=== PATIENT | female | born 1995 | race Caucasian/White ===

== ENCOUNTER 2018-01-06 13:55 | Emergency (ER) | payer MEDICAID, SELFPAY ==
[2018-01-06 14:15] VITALS: BP 146/83; PULSE 120; RESP 20; TEMP 36.9; O2SAT 97; BMI 22.7
--- NOTE | 2018-01-06 14:32 | HMH.EDUTC ---
[facility] [place] Disposition Clinical Impression: Allergic pharyngitis Disposition: Home, Self-Care Condition on Discharge: Good Instructions: DI for Allergic Rhinitis Additional Instructions: * No sign of bacterial infection. Sounds like allergies. * Nasal Saline helps to remove nasal drainage and helps with nasal congestion. Hard to eat, drink, sleep with nasal congestion so important to keep nose cleaned out * Monitor Temp. Fever is NOT expected and could be the sign of a secondary infection so be sure to follow up if this develops. * Lots of fluids, always. Preferably water. Avoid soda/tea/caffeine * warm salt water gargles, warm fluids, sore throat lozenges all help with drainage related sore throat * sleep elevated to help with drainage * humidifier/vaporizer and/or hot steamy showers * Start Claritin 10mg daily and flonase 2 sprays each nostril daily. Can take several days before you notice improvement. Wait one week and if symptoms controlled, back down to 1 spray flonase each nostril and the claritin. If symptoms return, go back to 2 sprays but if symptoms remain controlled, give it a week and try stopping flonase. If symptoms return, start back at 1 spray each nostril with claritin but if symptoms remain controlled, continue just claritin. Wait another week and if still controlled, try stopping claritin. If symptoms return, restart claritin but if remain controlled, no medication. FOLLOW UP: Follow up IMMEDIATELY for new or worsening symptoms OR no noticeable improvement over the next 48-72 hours. 911 for difficulty breathing or swallowing Forms: Work/School Release Time of Disposition: 14:42 Medical Decision Making - Anand Inquiry Pt receiving controlled substance: No Vital Signs: 01/06/18 14:15 01/06/18 14:48 Temperature 98.4 F 98.4 F Temperature Source Temporal Artery Scan Pulse Rate 120 H Pulse Rate [Brachial] 120 H Respiratory Rate 20 20 Blood Pressure 146/83 Blood Pressure [Right Arm] 146/83 Blood Pressure Mean [Right Arm] 104 02 Sat by Pulse Oximetry 97 Oxygen Delivery Method Room Air - Lab Data Lab results reviewed: Yes: I reviewed the patient's lab results. Lab Results 01/06/18 14:18: Influenza Type A Ag Negative, Influenza Type B Ag Negative 01/06/18 14:29: Strep Scn Rapid Clinic Negative Orders (Tests/Meds): ORDERS Category Date Time Status Strep Screen Confirmation Stat Micro 01/06/18 14:[address] [facility] [place] HPI - General Stated complaint: sore throat rod cough Time Seen by Provider: 01/06/18 14:33 Mode of Arrival: Ambulatory Source of Information: Patient Limitations: No Limitations Description of Symptoms (Recalled from Triage Doc. by RN): HAD MIGRAINE, RUNNY CONCEPCION, COUGH AND SNEEZING SINCE LAST NIGHT HEENT Symptoms (Recalled from RN notes): Yes Resp Symptoms (Recalled from RN notes): Yes Skin Symptoms (Recalled from RN notes): No MS Symptoms (Recalled from RN notes): No Functional Status (Recalled from RN notes): NA - History of Present Illness Provider Complaint: Patient presents with sore throat worsened by swallowing, headaches, dry cough, sneezing and rhinorrhea since yesterday. She reports not taking a home temperature, but denies feeling chills or body aches. She does state her head feels hot at times. She reports taking Theraflu, which did not help her symptoms. Patient denies any sick contacts. - Related Data Allergies Allergy/AdvReac Type Severity Reaction Status Date / Time PCN (PENICILLIN) Allergy Unknown Uncoded 10/01/17 15:01 - Worker's Comp Is this a Worker's Comp case?: No [facility] History I have reviewed the patient's past medical history: Yes (Denies PMHx) Medical History: Denies:: Diabetes Mellitus Type 1, Diabetes Mellitus Type 2, Hypertension Other Medical History: Denies: Other (allergies) Other Surgeries: Yes: No Previous Surgery - Social History Alcohol Intake: never - Psychiatric History Expresses thoughts of harming self/others
--- NOTE | 2018-01-06 14:39 | ED_ITS ---
[facility] [place] Disposition Clinical Impression: Allergic pharyngitis Disposition: Home, Self-Care Condition on Discharge: Good Instructions: DI for Allergic Rhinitis Additional Instructions: * No sign of bacterial infection. Sounds like allergies. * Nasal Saline helps to remove nasal drainage and helps with nasal congestion. Hard to eat, drink, sleep with nasal congestion so important to keep nose cleaned out * Monitor Temp. Fever is NOT expected and could be the sign of a secondary infection so be sure to follow up if this develops. * Lots of fluids, always. Preferably water. Avoid soda/tea/caffeine * warm salt water gargles, warm fluids, sore throat lozenges all help with drainage related sore throat * sleep elevated to help with drainage * humidifier/vaporizer and/or hot steamy showers * Start Claritin 10mg daily and flonase 2 sprays each nostril daily. Can take several days before you notice improvement. Wait one week and if symptoms controlled, back down to 1 spray flonase each nostril and the claritin. If symptoms return, go back to 2 sprays but if symptoms remain controlled, give it a week and try stopping flonase. If symptoms return, start back at 1 spray each nostril with claritin but if symptoms remain controlled, continue just claritin. Wait another week and if still controlled, try stopping claritin. If symptoms return, restart claritin but if remain controlled, no medication. FOLLOW UP: Follow up IMMEDIATELY for new or worsening symptoms OR no noticeable improvement over the next 48-72 hours. 911 for difficulty breathing or swallowing Forms: Work/School Release Time of Disposition: 14:42 Medical Decision Making - Anand Inquiry Pt receiving controlled substance: No Vital Signs: 01/06/18 14:15 01/06/18 14:48 Temperature 98.4 F 98.4 F Temperature Source Temporal Artery Scan Pulse Rate 120 H Pulse Rate [Brachial] 120 H Respiratory Rate 20 20 Blood Pressure 146/83 Blood Pressure [Right Arm] 146/83 Blood Pressure Mean [Right Arm] 104 02 Sat by Pulse Oximetry 97 Oxygen Delivery Method Room Air - Lab Data Lab results reviewed: Yes: I reviewed the patient's lab results. Lab Results 01/06/18 14:18: Influenza Type A Ag Negative, Influenza Type B Ag Negative 01/06/18 14:29: Strep Scn Rapid Clinic Negative Orders (Tests/Meds): ORDERS Category Date Time Status Strep Screen Confirmation Stat Micro 01/06/18 14:29 Received [facility] [place] HPI - General Stated complaint: sore throat rod cough Time Seen by Provider: 01/06/18 14:33 Mode of Arrival: Ambulatory Source of Information: Patient Limitations: No Limitations Description of Symptoms (Recalled from Triage Doc. by RN): HAD MIGRAINE, RUNNY CONCEPCION, COUGH AND SNEEZING SINCE LAST NIGHT HEENT Symptoms (Recalled from RN notes): Yes Resp Symptoms (Recalled from RN notes): Yes Skin Symptoms (Recalled from RN notes): No MS Symptoms (Recalled from RN notes): No Functional Status (Recalled from RN notes): NA - History of Present Illness Provider Complaint: Patient presents with sore throat worsened by swallowing, headaches, dry cough, sneezing and rhinorrhea since yesterday. She reports not taking a home temperature, but denies feeling chills or body aches. She does state her head feels hot at times. She reports taking Theraflu, which did not help her symptoms. Patient denies any sick contacts. - Related Data Allergies Allergy/AdvReac Type Severity R
[2018-01-06 14:46] LABS: UTC Strep Screen (Rapid) Negative (Negative)
[2018-01-06 14:46] LABS: UTC Influenza A Antigen Negative (Negative); UTC Influenza B Antigen Negative (Negative)
[2018-01-06 14:48] VITALS: BP 146/83; PULSE 120; RESP 20; TEMP 36.9; O2SAT 97
== END 2018-01-06 14:49 | disposition home or self-care (01) ==
PROVIDERS: Emergency Provider Nurse Practitioner Family; Family Provider Emergency Medicine
DX: J02.9 Acute pharyngitis, unspecified (principal); Z88.0 Allergy status to penicillin
CPT/HCPCS: 87804; 87880; 99202

== ENCOUNTER → 2019-05-14 11:03 | Outpatient (CLI) | payer OTHER, SELFPAY ==
[2019-05-14 11:53] LABS: Basophils % 0.3 % (0.1-2.0); Eosinophils % 0.7 % (0.1-12.0); Hematocrit 42.2 % (37.0-47.0); Hemoglobin 13.3 g/dL (12.2-16.2); Lymphocytes # 2.1 K/mm3 (0.7-4.5); Lymphocytes % 34.1 % (10-50); Mean Corpuscular HGB Conc 31.5 g/dL (31.8-35.4); Mean Corpuscular Hemoglobin 30.7 pg (27.0-31.2); Mean Corpuscular Volume 97.5 fl (81-99); Mean Platelet Volume 7.8 fl (7.4-10.4); Monocytes # 0.3 K/mm3 (0.1-1.0); Monocytes % 4.8 % (1.7-9.3); Neutrophils # 3.7 K/mm3 (1.8-7.8); Platelet Count 307 K/mm3 (142-424); Red Blood Count 4.32 M/mm3 (4.20-5.40); Red Cell Distribution Width 12.7 % (11.5-17.5); White Blood Count 6.1 K/mm3 (4.8-10.8)
[2019-05-14 15:08] LABS: Amphetamine/Metha Screen,Urine Negative ng/mL (<1000); Barbiturates Screen,Urine Negative ng/mL (<200); Benzodiazepines Screen,Urine Negative ng/mL (<200); Cannabinoid Screen,Urine Negative ng/mL (<50); Cocaine Screen,Urine Negative ng/mL (<300); Methadone Screen,Urine Negative ng/mL (<300); Opiate Screen,Urine Negative ng/mL (<300); Phencyclidine Screen,Urine Negative ng/mL (<25)
[2019-05-15 09:17] LABS: HIV Screen 4th Generation wRfx Non Reactive (Non Reactive)
[2019-05-15 17:11] LABS: Hepatitis B Surface Antigen Negative (Negative); Hepatitis C Antibody <0.1 s/co ratio (0.0-0.9); Rapid Plasma Reagin Ab Titer Non Reactive (NonRea<1:1); Rubella Antibodies, IgG 2.08 index (Immune >0.99)
== END ==
PROVIDERS: Visit Provider Obstetrics & Gynecology
DX: Z34.90 Encounter for supervision of normal pregnancy, unspecified, unspecified trimester (principal)
CPT/HCPCS: 36415; 80305; 84443; 85025; 86592; 86703; 86762; 86850; 87340; 87380; G0432

== ENCOUNTER → 2019-05-25 14:22 | Outpatient (CLI) | payer OTHER, SELFPAY ==
[2019-05-25 15:13] LABS: Triiodothryronine (T3) Uptake 36 % (31-39)
== END ==
PROVIDERS: Visit Provider Obstetrics & Gynecology
DX: Z34.90 Encounter for supervision of normal pregnancy, unspecified, unspecified trimester (principal); R94.6 Abnormal results of thyroid function studies
CPT/HCPCS: 36415; 84436; 84443; 84479

== ENCOUNTER → 2019-09-15 11:21 | Outpatient (CLI) | payer OTHER, SELFPAY ==
--- NOTE | 2019-09-15 11:23 | US_ITS ---
PROCEDURE: US OB /MATERNAL DETAIL CLINICAL INDICATION: US OB Complete COMPARISON: No exams were available for comparison FINDINGS: Single viable intrauterine gestation. Cephalic position. Placenta: Fundal and posteriorplacenta grade 1. There is average amount fluid. The cervix appears satisfactory. Closed and measuring 4 cm in length. Complete survey performed and was unremarkable on the submitted images as in PACS. No discrete anomalies identified on survey imaging by technologist. Active fetus. Three-vessel cord with satisfactory umbilical cord insertion. 4- chamber heart noted. Survey of brain & ventricles Unremarkable. Face and neck survey unremarkable. Diaphragm and chest views unremarkable. Abdomen: Both kidneys noted and unremarkable. Stomach noted and satisfactory. Spine: Survey of the spine satisfactory with no anomalies identified nor imaged. Both arms and legs noted. Amniotic Fluid: Adequate. Maternal adnexa: No significant findings. Measurements: Average ultrasound age 24 week 4 days. Gestational Age 24 weeks 3 days Estimated due date by ultrasound age 0301/01/2020. Estimated weight 671.4 ggrams. BPD = 25/1 OFD = 25/1 HC = 24/4 AC = 24/ FL = 24/2 Growth Percentile= 31 percentile% Heart Rate = 152 bpm Cerebellum = 25/6 Humerus = 24/2 HC/AC is 1.17 CI is 0.77 FL/BPD is 0.7 FL/AC is 0.22 IMPRESSION: There is a single live fetus which is in cephalic presentation. heart and body motion noted. All parameters correlate. No obvious anomalies. Please see above for detail Dictated by: Mario Reagan MD 09/16/2019 13:54 Electronically signed by Mario Reagan MD in [place] 09/16/2019 13:54
== END ==
PROVIDERS: PCP Internal Medicine; Visit Provider Obstetrics & Gynecology
DX: Z36.0 Encounter for antenatal screening for chromosomal anomalies (principal)
CPT/HCPCS: 76811

== ENCOUNTER → 2019-10-16 07:53 | Outpatient (CLI) | payer OTHER, SELFPAY ==
[2019-10-16 08:20] LABS: Glucose,Fasting 80 mg/dL (60-105)
[2019-10-16 09:56] LABS: Glucose 1 Hour 145 mg/dL (74-106)
== END ==
PROVIDERS: Visit Provider Obstetrics & Gynecology
DX: Z34.90 Encounter for supervision of normal pregnancy, unspecified, unspecified trimester (principal)
CPT/HCPCS: 36415; 82951

== ENCOUNTER → 2019-10-19 07:35 | Outpatient (CLI) | payer OTHER, SELFPAY ==
[2019-10-19 08:07] LABS: Glucose,Fasting 75 mg/dL (60-105)
== END ==
PROVIDERS: Visit Provider Obstetrics & Gynecology
DX: Z34.90 Encounter for supervision of normal pregnancy, unspecified, unspecified trimester (principal)
CPT/HCPCS: 36415; 82951

== ENCOUNTER → 2019-12-02 13:24 | Outpatient (CLI) | payer OTHER, SELFPAY ==
--- NOTE | 2019-12-02 13:24 | US_ITS ---
PROCEDURE: US OB FOLLOW UP CLINICAL INDICATION: US OB Growth KARLOS- small for dates COMPARISON: US OB /MATERNAL DETAIL from 09/15/2019 FINDINGS: Single viable intrauterine gestation. Cephalic position. Placenta: Posteriorplacenta grade 2. There is average amount fluid. The cervix appears satisfactory. Closed and measuring 3.1 centimeters in length. Complete survey performed and was unremarkable on the submitted images as in PACS. No discrete anomalies identified on survey imaging by technologist. Active fetus. Three-vessel cord with satisfactory umbilical cord insertion. 4- chamber heart noted. Survey of brain & ventricles Unremarkable. Face and neck survey unremarkable. Diaphragm and chest views unremarkable. Abdomen: Both kidneys noted and unremarkable. Stomach noted and satisfactory. Spine: Survey of the spine satisfactory with no anomalies identified nor imaged. Both arms and legs noted. Amniotic Fluid: Adequate. Maternal adnexa: No significant findings. Measurements: Average ultrasound age 35weeks 1day. Gestational Age 35 weeks 4 days Estimated due date by ultrasound age 0301/05/2020. Estimated weight 2,612ggrams. BPD = 35 weeks 4 days OFD = 35 weeks 2 days HC = 35 weeks 0 days AC = 35 weeks 6 days FL = 34 weeks 1 day Growth Percentile= 32Percent% Heart Rate = 161bpm HC/AC is 0.98 CI is 0.8 FL/BPD is 0.75 FL/AC is 0.21 IMPRESSION: Living intrauterine gestation at 35 weeks 1 day Dictated by: Glen Aguila 12/02/2019 15:06 Electronically signed by Glen Aguila in [place] 12/02/2019 15:06
== END ==
PROVIDERS: PCP Internal Medicine; Visit Provider Obstetrics & Gynecology
DX: O36.5990 Maternal care for other known or suspected poor fetal growth, unspecified trimester, not applicable or unspecified (principal)
CPT/HCPCS: 76816

== ENCOUNTER → 2019-12-04 14:30 | Outpatient (CLI) | payer OTHER, SELFPAY | PROVIDERS: Visit Provider Obstetrics & Gynecology | DX: Z34.90 Encounter for supervision of normal pregnancy, unspecified, unspecified trimester (principal) | CPT/HCPCS: 86403 ==

== ENCOUNTER 2019-12-27 16:01 | Inpatient (IN) ==
[2019-12-27 17:01] LABS: Microscopic, Urine URINE MICROSCOPIC (MICROSCOPIC)
[2019-12-27 17:03] LABS: Basophils % 0.2 % (0.1-2.0); Eosinophils % 0.3 % (0.1-12.0); Hemoglobin 12.4 g/dL (12.2-16.2); Lymphocytes # 3.1 K/mm3 (0.7-4.5); Lymphocytes % 28.9 % (10-50); Mean Corpuscular HGB Conc 33.4 g/dL (31.8-35.4); Mean Corpuscular Volume 90.9 fl (81-99); Monocytes # 0.4 K/mm3 (0.1-1.0); Neutrophils # 7.1 K/mm3 (1.8-7.8); Neutrophils % 66.6 % (37.0-80.0); Platelet Count 361 K/mm3 (142-424); Red Blood Count 4.07 M/mm3 (4.20-5.40); Red Cell Distribution Width 13.6 % (11.5-17.5); White Blood Count 10.7 K/mm3 (4.8-10.8)
[2019-12-27 17:16] LABS: Barbiturates Screen,Urine Negative ng/ml (<200)
[2019-12-27 17:17] LABS: Amphetamine/Metha Screen,Urine Negative ng/ml (<1000); Benzodiazepines Screen,Urine Negative ng/ml (<200)
[2019-12-27 17:18] LABS: Cannabinoid Screen,Urine Negative ng/ml (<50)
[2019-12-27 17:19] LABS: Cocaine Screen,Urine Negative ng/ml (<300); Methadone Screen,Urine Negative ng/ml (<300)
[2019-12-27 17:20] LABS: Opiate Screen,Urine Negative ng/ml (<300); Phencyclidine Screen,Urine Negative ng/ml (<25)
[2019-12-27 17:25] LABS: Appearance,Urine CLEAR (Clear); Bilirubin,Urine Negative (Negative); Blood, Urine Negative (Negative); Color,Urine YELLOW (Yellow); Glucose,Urine (UA) Negative (Negative); Ketones,Urine Negative (Negative); Leukocyte Esterase,Urine TRACE (Negative); PH,Urine 6.5 (5.0-8.5); Protein,Urine Negative (Negative); Specific Gravity, Urine 1.015 (1.005-1.030); Urobilinogen,Urine 0.2 EU/dl (0.2)
[2019-12-27 17:32] LABS: WBC,Urine Occasional #/hpf (0-3)
--- NOTE | 2019-12-28 07:42 | Progress Note ---
[facility] Anesthesia Checklist - Structural Data Admitted From: Inpatient Planned Operative Procedure/s: labor erpidural Consent for Planned Operative Procedure(s) Verified: Yes - Airway Assessment C-Spine Mobility Assessed: Yes TMJ Mobility Assessed: Yes Dentition: Good Dentition - Neurological Assessment Level of Consciousness: Awake, Alert, Appropriate - Anesthesia Plan Anesthesia Risk discussed: Yes Anesthesia Plan: Verified ASA Class: II Anesthesia Type: Epidural [facility] History I have reviewed the patient's past medical history: Yes Medical History: Denies:: Diabetes Mellitus Type 1, Diabetes Mellitus Type 2, Hypertension *Have you ever received a pneumonia vaccine?: No *Have you received a flu vaccine this season?: Yes Other Medical History: Denies: Other Anesthesia experience/problems:: none Other Surgeries: Yes: No Previous Surgery. No: Amputation: No Fractures: No - *Social History Smoking Status: Never smoker Alcohol Intake: never Alcohol Intake Frequency:: other Substance Use Type: denies use *Occupational Status:: employed Housing: house *Travel in the last 8 weeks: None Family Hx:: No significant family history GIZZARD PULLER history: No GIZZARD PULLER history Para: 0
--- NOTE | 2019-12-28 13:20 | Procedure Note ---
- Delivery Note Delivery Date:: 12/28/19 Delivery Time:: 11:17 Anesthesia Type: Epidural Was labor medically induced?: Yes Induction method: per pitocin protocol Gestational age (weeks): 41 delivered prior to 39 weeks?: No Gender: Female Delivery Procedure:: Complete and pushing. Patient having bradycardia with pushing and maternal exhaustion. Outlet vacuum applied in standard fashion Vacuum assisted vaginal delivery of liveborn female over intact perineum. Delivery uncomplicated No nuchal cord; no shoulder dystocia with delivery placed in SAUD with mother immediately after umbilical cord clamped/cut, with standard nursing assessment performed Placenta spontaneously expressed and examined; noted to be complete/intact. Vulva, vagina, and cervix inspected; second degree laceration repaired with 2-0 vicryl EBL: 300 cc All sponge/needle/instrument counts correct at conclusion of procedure Disposition: Mom/baby stable to recovery in LDRP Laceration:: vaginal Placental Delivery Description: Spontaneous
[2019-12-28 16:32] VITALS: BP 133/76
[2019-12-29 05:50] LABS: Hematocrit 27.4 % (37.0-47.0); Hemoglobin 9.2 g/dL (12.2-16.2)
--- NOTE | 2019-12-29 12:17 | Progress Note ---
Internal Medicine - PN: Subj *Date: 12/29/19 *Time: 12:16 Interval history: PPD #1 VAVD No complaints Tolerating regular diet Ambulating and voiding without difficulty Lochia appropriate; asymptomatic with anemia Exam Vital signs and Labs for Last 24 Hours: Temp Pulse Resp BP Pulse Ox 98.2 F 83 18 133/76 98 12/28/19 16:05 12/28/19 16:05 12/28/19 16:05 12/28/19 16:05 12/28/19 07:33 Laboratory Results - last 24 hr 12/29/19 05:20: Hgb 9.2 L, Hct 27.4 L I & O for Last 24 hours: Intake & Output 12/27/19 12/28/19 12/29/19 12/30/19 11:59 11:59 11:59 11:59 Weight 126 lb Narrative: CONSTITUTIONAL: no acute distress HEENT: mucous membranes moist PULMONARY: breathing unlabored without audible wheezes CV: no tachycardia or visible JVD; normal LE peripheral pulses ABD: soft, NT/ND, no guarding : fundus firm at/below umbilicus SKIN: no visible rash or lesions EXT: 1+ edema LEs NEURO: alert/oriented, no altered mental status PSYCH: appropriate mood and demeanor without visible anxiety/depression Assessment and Plan (1) 39 weeks gestation of Current visit: Yes Status: Acute Category: Medical Code(s): Z3A.39 - 39 weeks gestation of (2) Glucose intolerance Problem details: Failed 1 hr GCT; unable to tolerate 3 hr GTT Current visit: Yes Status: Acute Category: Medical Code(s): E74.39 - Other disorders of intestinal carbohydrate absorption (3) Small for dates fetus Problem details: EFW 32%, normal KARLOS Grade 2 placenta Current visit: Yes Status: Acute Category: Medical - Assessment and plan all Dx Assessment and Plan for all problems:: Routine care PNV with FeSO4 Anticipate discharge home tomorrow
--- NOTE | 2019-12-30 13:18 | Discharge Summary ---
General - General Admission date:: 12/27/19 Discharge date: 12/30/19 HPI HPI: PPD #2 S/P VAVD, uncomplicated course uneventful Infant diagnosed with tethered cord and will need outpatient follow up Hospital Course Rhogam Administration: Not Indicated Objective Vital signs: Temp Pulse Resp BP Pulse Ox 98.2 F 83 18 133/76 98 12/28/19 16:05 12/28/19 16:05 12/28/19 16:05 12/28/19 16:05 12/28/19 07:33 Narrative: CONSTITUTIONAL: no acute distress HEENT: mucous membranes moist PULMONARY: breathing unlabored without audible wheezes CV: no tachycardia or visible JVD; normal LE peripheral pulses ABD: soft, NT/ND, no guarding : fundus firm at/below umbilicus SKIN: no visible rash or lesions EXT: 1+ edema LEs NEURO: alert/oriented, no altered mental status PSYCH: appropriate mood and demeanor without visible anxiety/depression DS: Diagnosis - Discharge Diagnosis (1) 39 weeks gestation of Status: Acute (2) Glucose intolerance Status: Acute Problem details: Failed 1 hr GCT; unable to tolerate 3 hr GTT (3) Small for dates fetus Status: Acute Problem details: EFW 32%, normal KARLOS Grade 2 placenta Discharge Plan - Patient Discharge Instructions ACTIVITY: Continue current activity DIET: regular diet Additional Instructions: no heavy lifting, no strenuous activity, nothing in the vagina for 6 weeks. Patient Instructions: Depression, Hemorrhage, [facility] Post Discharge Instructions - Follow up Plan Follow up with: Frieda Garsia MD [Staff Physician] - Disposition: Home, Self-Detention Medications: Home Medications Medication Instructions Recorded Confirmed Type pediatric multivitamin no.76 2 tab PO DAILY 09/09/19 12/27/19 History Ibuprofen [Motrin 400mg 800 mg PO Q6HP PRN #30 tab 12/30/19 Rx tablet] Prescriptions/Medication Reconciliation: New Acetaminophen [Acetaminophen 325mg tab] 650 mg PO Q4HP PRN tablet PRN Reason: Mild Pain Ibuprofen [Motrin 400mg tablet] 800 mg PO Q6HP PRN #30 tab PRN Reason: Mild To Moderate Pain Continued pediatric multivitamin no.76 2 tab PO DAILY - Problem Reconciliation Problems Reviewed?: Yes
== END 2019-12-30 15:57 | disposition home or self-care (01) | DRG 807 ==
LOC: OB 16:01
PROVIDERS: ADMIT Obstetrics & Gynecology; ATTEND Obstetrics & Gynecology
CPT/HCPCS: 36415; 59025; 80305; 81001; 85014; 85018; 85025; 86850; 94761; J0595

== ENCOUNTER 2020-06-21 17:20 | Emergency (ER) | payer OTHER, SELFPAY ==
[2020-06-21 17:37] VITALS: BP 121/81; PULSE 85; RESP 19; TEMP 36.9; O2SAT 100; BMI 22.9
--- NOTE | 2020-06-21 18:10 | HMH.EDUTC ---
[facility] [place] Disposition Clinical Impression: Strep throat Disposition: Home, Self-Care Condition on Discharge: Good Instructions: Strep Throat, DI for Strep Throat Additional Instructions: Drink plenty of fluids. Take tylenol or ibuprofen for pain or fever. Take the medications as directed. Follow up with your regular doctor. GO TO THE ER FOR ANY WORSENING SYMPTOMS Throw your tooth brush away and get a new one. Prescriptions: Ondansetron [Zofran 4mg ODT] 4 mg PO Q8HP PRN #20 tab.rapdis PRN Reason: Nausea Transmission Status: Pending to [id number] Azithromycin [Z-Ozzie 250mg Tab*] 250 mg PO UD DOSE PK #6 tab Transmission Status: Pending to [id number] Referrals: Reginaldo Frazier [Primary Care Provider] - Time of Disposition: 18:13 Medical Decision Making - Medical Records Medical records reviewed: No: I reviewed the patient's medical records. - Anand Inquiry Pt receiving controlled substance: No Vital Signs: 06/21/20 17:37 Temperature 98.4 F Temperature Source Oral Pulse Rate [Right Brachial] 85 Respiratory Rate 19 Blood Pressure [Right Arm] 121/81 Blood Pressure Mean [Right Arm] 94 Blood Pressure Source [Right Arm] Automatic Cuff Blood Pressure Position [Right Arm] Sitting 02 Sat by Pulse Oximetry 100 Oxygen Delivery Method Room Air - Lab Data Lab results reviewed: Yes: I reviewed the patient's lab results. [facility] [place] HPI - General Stated complaint: Sore throat, cough Time Seen by Provider: 06/21/20 18:10 Mode of Arrival: Ambulatory Source of Information: Patient Limitations: No Limitations Description of Symptoms (Recalled from Triage Doc. by RN): PATIENT C/O COUGHT, SORE THROAT, AND SNEEZING X 2 DAYS HEENT Symptoms (Recalled from RN notes): Yes Resp Symptoms (Recalled from RN notes): Yes Skin Symptoms (Recalled from RN notes): No MS Symptoms (Recalled from RN notes): No Functional Status (Recalled from RN notes): WNL - History of Present Illness Provider Complaint: She c/o sore throat and feeling bad for the past 2 days. She states that she gets strep throat easily. - Related Data Previous Rx's Medication Instructions Recorded fluoxetine 20 mg capsule 20 mg PO DAILY #30 cap 06/07/20 medroxyprogesterone 150 mg/mL 150 mg IM [id number] #1 ml 06/07/20 intramuscular suspension Azithromycin [Z-Ozzie 250mg Tab*] 250 mg PO UD DOSE PK #6 tab 06/21/20 Ondansetron [Zofran 4mg ODT] 4 mg PO Q8HP PRN #20 tab.rapdis 06/21/20 Allergies Allergy/AdvReac Type Severity Reaction Status Date / Time Penicillins Allergy Verified 06/07/20 15:01 - Worker's Comp Is this a Worker's Comp case?: No [facility] History - Hepatitis A Screen Drug use history?: No High risk sexual behaviors?: No History of sexually transmitted infection?: No Currently employed?: No Childcare worker?: No Do you have indoor plumbing?: Yes Do you have electricity?: Yes Attestation statement:: This patient has been screened for Hepatitis A risk factors. I have reviewed the patient's past medical history: Yes Medical History: Denies:: Diabetes Mellitus Type 1, Diabetes Mellitus Type 2, Hypertension Other Medical History: Denies: Other Other Surgeries: Yes: No Previous Surgery. No: Amputation: No Fractures: No - Social History Smoking Status: Never smoker Alcohol Intake: never Alcohol Intake Frequency:: other Substance Use Type: denies use Occupational Status: other Housing: house Family Hx:: No significant family history CLINICAL NURSING ASSISTANT history: No CLINICAL NURSING ASSISTANT history ROS Obtained: Yes All systems reviewed & no additional complaints - Constitutional Constitutional: Reports chills, Reports fever(s), Reports poor appetite, Reports malaise - Eyes Eyes: Denies eye discharge - ENT Ears, Nose, Mouth, and Throat: Reports as per HPI - Cardiovascular Cardiovascular: Denies chest pain - Respiratory Respiratory: No chest congestion, Yes cough - Gastrointestinal Gastrointes
[2020-06-21 18:20] LABS: UTC Strep Screen (Rapid) Positive (Negative)
[2020-06-21 18:24] VITALS: BP 121/81; PULSE 85; RESP 19; TEMP 36.9; O2SAT 100
== END 2020-06-21 18:25 | disposition home or self-care (01) ==
PROVIDERS: Emergency Provider Nurse Practitioner Family; PCP Internal Medicine
DX: J02.0 Streptococcal pharyngitis (principal)
CPT/HCPCS: 87880; 99201

== ENCOUNTER → 2021-09-28 11:13 | Outpatient (CLI) | payer OTHER, SELFPAY | PROVIDERS: Visit Provider Obstetrics & Gynecology | DX: Z34.90 Encounter for supervision of normal pregnancy, unspecified, unspecified trimester (principal) | CPT/HCPCS: 36415; 84702 ==

== ENCOUNTER → 2021-09-30 13:11 | Outpatient (CLI) | payer OTHER, SELFPAY ==
[2021-09-30 15:55] LABS: HCG,Quantitative 140280 mIU/ml (0-5.42)
== END ==
PROVIDERS: PCP Internal Medicine; Visit Provider Obstetrics & Gynecology
DX: Z34.90 Encounter for supervision of normal pregnancy, unspecified, unspecified trimester (principal)
CPT/HCPCS: 36415; 84702

== ENCOUNTER → 2021-10-10 13:53 | Outpatient (CLI) | payer OTHER, SELFPAY ==
--- NOTE | 2021-10-10 13:53 | US_ITS ---
PROCEDURE: US OB <= 14 WEEKS FETUS CLINICAL INDICATION: Dates COMPARISON: US US OB FOLLOW UP from 12/02/2019 FINDINGS: An intrauterine gestational sac is present with a pole with a crown-rump length of 1.71cm correlating to gestational age of 8weeks 2days. heart tones are present with an FHR of 167bpm. Yolk sac is noted. Unremarkable adnexa. IMPRESSION: Live IUP at 8 weeks 2 days Estimated due date by Ultrasound is 05/20/2022 Dictated by: Mario Reagan MD 10/10/2021 15:54 Mario Reagan MD in [place] 10/10/2021 15:54
== END ==
PROVIDERS: PCP Internal Medicine; Visit Provider Obstetrics & Gynecology
DX: Z34.90 Encounter for supervision of normal pregnancy, unspecified, unspecified trimester (principal)
CPT/HCPCS: 76801

== ENCOUNTER → 2021-10-23 15:11 | Outpatient (CLI) | payer OTHER, SELFPAY ==
[2021-10-23 16:03] LABS: Basophils # 0.1 K/mm3 (0-0.2); Basophils % 0.7 % (0.1-2.0); Eosinophils # 0.1 K/mm3 (0.0-0.4); Eosinophils % 1.2 % (0.1-12.0); Lymphocytes # 3.9 K/mm3 (0.7-4.5); Lymphocytes % 39.7 % (10-50); Mean Corpuscular HGB Conc 34.1 g/dL (31.8-35.4); Mean Corpuscular Hemoglobin 32.6 pg (27.0-31.2); Mean Corpuscular Volume 95.6 fl (81-99); Monocytes # 0.4 K/mm3 (0.1-1.0); Neutrophils # 5.3 K/mm3 (1.8-7.8); Neutrophils % 54.4 % (37.0-80.0); Platelet Count 413 K/mm3 (142-424); Red Blood Count 4.29 M/mm3 (4.20-5.40); Red Cell Distribution Width 13.2 % (11.5-17.5); White Blood Count 9.7 K/mm3 (4.8-10.8)
[2021-10-25 08:52] LABS: HIV Screen 4th Generation wRfx Non Reactive (Non Reactive)
[2021-10-25 12:15] LABS: Hepatitis B Surface Antigen Negative (Negative); Hepatitis C Antibody 0.1 s/co ratio (0.0-0.9); Rapid Plasma Reagin Ab Titer Non Reactive (NonRea<1:1)
[2021-10-25 14:16] LABS: Rubella Antibodies, IgG 1.36 index (Immune >0.99)
== END ==
PROVIDERS: PCP Internal Medicine; Visit Provider Obstetrics & Gynecology
DX: Z34.90 Encounter for supervision of normal pregnancy, unspecified, unspecified trimester (principal)
CPT/HCPCS: 36415; 85025; 86592; 86703; 86762; 86850; 87340; 87380; G0432

== ENCOUNTER → 2022-01-02 12:40 | Outpatient (CLI) | payer OTHER, SELFPAY ==
--- NOTE | 2022-01-02 12:41 | US_ITS ---
FINAL REPORT CLINICAL HISTORY: anatomy scan, OB complete FINDINGS: There is a single live intrauterine gestation. Presentation is breech. The cervix is closed and measures 3.29 cm. Placenta is anterior/ fundal. movement is noted. Heart rate is measured at 158 beats per minute. No gross anomaly is identified. AMNIOTIC FLUID: Appropriate amount. MEASUREMENTS: ULTRASOUND AGE: 19 weeks 6 days. GESTATION AGE: 20 weeks 2 days. ESTIMATED WEIGHT: 333 g GROWTH PERCENTILE: 35% BPD: 4.6 cm corresponding with 19 weeks 6 days. OFD: 5.7 cm corresponding with 19 weeks 6 days. HC: 16.2 cm corresponding with 19 weeks 0 days. AC: 15.2 cm corresponding with 20 weeks 3 days. FL: 3.2 cm corresponding with 20 weeks 1 day. CEREBELLUM: 2 cm corresponding with 20 weeks 3 days. HUMERUS: 3.1 cm corresponding with 20 weeks 2 days. NUCH FOLD: 1.4 MM. HC/AC: 1.07 CI: 80% FL/BPD: 71% FL/AC: 21% IMPRESSION: Single living IUP with an ultrasound age of 19 weeks 6 days. No gross anomalies noted. Reviewed, Interpreted and Dictated by Pratik Tyler MD Transcribed by Shima Sims Authenticated by Pratik Tyler MD on 01/02/2022 04:01:29 PM [facility]
== END ==
PROVIDERS: PCP Internal Medicine; Visit Provider Obstetrics & Gynecology
DX: Z34.90 Encounter for supervision of normal pregnancy, unspecified, unspecified trimester (principal)
CPT/HCPCS: 76805

== ENCOUNTER → 2022-02-09 08:51 | Outpatient (CLI) | payer OTHER, SELFPAY ==
[2022-02-09 09:12] LABS: Basophils # 0.1 K/mm3 (0-0.2); Basophils % 1.2 % (0.1-2.0); Eosinophils # 0.1 K/mm3 (0.0-0.4); Eosinophils % 0.7 % (0.1-12.0); Hematocrit 37.9 % (37.0-47.0); Hemoglobin 12.5 g/dL (12.2-16.2); Lymphocytes # 2.5 K/mm3 (0.7-4.5); Mean Corpuscular Hemoglobin 31.7 pg (27.0-31.2); Mean Corpuscular Volume 95.8 fl (81-99); Mean Platelet Volume 7.8 fl (7.4-10.4); Monocytes # 0.3 K/mm3 (0.1-1.0); Monocytes % 3.6 % (1.7-9.3); Neutrophils # 5.5 K/mm3 (1.8-7.8); Neutrophils % 65.6 % (37.0-80.0); Platelet Count 337 K/mm3 (142-424); Red Blood Count 3.95 M/mm3 (4.20-5.40); Red Cell Distribution Width 14.4 % (11.5-17.5); White Blood Count 8.4 K/mm3 (4.8-10.8)
[2022-02-09 09:18] LABS: Glucose,Fasting 89 mg/dl (74-100)
[2022-02-09 10:36] LABS: Glucose 1 Hour 141 mg/dL (74-100)
== END ==
PROVIDERS: PCP Internal Medicine; Visit Provider Obstetrics & Gynecology
DX: Z34.90 Encounter for supervision of normal pregnancy, unspecified, unspecified trimester (principal)
CPT/HCPCS: 36415; 82951; 85025

== ENCOUNTER → 2022-04-03 12:59 | Outpatient (CLI) | payer OTHER, SELFPAY ==
--- NOTE | 2022-04-03 12:59 | US_ITS ---
FINAL REPORT CLINICAL HISTORY: Growth and KARLOS FINDINGS: There is a single live intrauterine gestation. Presentation is cephalic. Placenta is fundal, grade 2. Heart rate is 150 beats per minute. AMNIOTIC FLUID: Appropriate amount. KARLOS: 14.8 cm MEASUREMENTS: ULTRASOUND AGE: 33 weeks 2 days. GESTATION AGE: 33 weeks 2 days. ESTIMATED WEIGHT: 2125 g GROWTH PERCENTILE: 37% BPD: 8.3 cm corresponding with 33 weeks 2 days. OFD: 10.5 cm corresponding with 33 weeks 1 days. HC: 29.7 cm corresponding with 33 weeks 0 days. AC: 29.3 cm corresponding with 33 weeks 3 days. FL: 6.4 cm corresponding with 33 weeks 0 days. HC/AC: 1.01 CI: 79% FL/BPD: 77% FL/AC: 22% IMPRESSION: Single living IUP with an ultrasound age of 33 weeks 2 days. KARLOS of 14.8 cm Reviewed, Interpreted and Dictated by Mejia Salmeron III, MD Transcribed by Shima Sims Authenticated and [facility]
== END ==
PROVIDERS: PCP Internal Medicine; Visit Provider Obstetrics & Gynecology
DX: O36.5990 Maternal care for other known or suspected poor fetal growth, unspecified trimester, not applicable or unspecified (principal)
CPT/HCPCS: 76816

== ENCOUNTER → 2022-04-25 09:06 | Outpatient (CLI) | payer OTHER, SELFPAY | PROVIDERS: Visit Provider Obstetrics & Gynecology | DX: Z34.90 Encounter for supervision of normal pregnancy, unspecified, unspecified trimester (principal) | CPT/HCPCS: 86403 ==

== ENCOUNTER 2022-05-13 19:28 | Inpatient (IN) | payer OTHER, SELFPAY ==
[2022-05-13 18:29] VITALS: BMI 27.6
[2022-05-13 18:33] LABS: Microscopic, Urine URINE MICROSCOPIC (MICROSCOPIC)
[2022-05-13 18:43] LABS: Appearance,Urine CLEAR (Clear); Bilirubin,Urine Negative (Negative); Blood, Urine Negative (Negative); Color,Urine YELLOW (Yellow); Glucose,Urine (UA) Negative (Negative); Ketones,Urine TRACE (Negative); Leukocyte Esterase,Urine Negative (Negative); Nitrate,Urine Negative (Negative); Protein,Urine Negative (Negative)
[2022-05-13 18:46] LABS: Amorphous Sediment,Urine 1+ /lpf; Squamous Epithelial Cell,Urine Occasional #/hpf (0-5); WBC,Urine Occasional #/hpf (0-3)
[2022-05-13 18:54] LABS: Barbiturates Screen,Urine Negative ng/ml (<200)
[2022-05-13 18:55] LABS: Amphetamine/Metha Screen,Urine Negative ng/ml (<1000); Benzodiazepines Screen,Urine Negative ng/ml (<200)
[2022-05-13 18:56] LABS: Cannabinoid Screen,Urine Negative ng/ml (<50); Cocaine Screen,Urine Negative ng/ml (<300)
[2022-05-13 18:57] LABS: Methadone Screen,Urine Negative ng/ml (<300)
[2022-05-13 18:58] LABS: Opiate Screen,Urine Negative ng/ml (<300); Phencyclidine Screen,Urine Negative ng/ml (<25)
[2022-05-13 20:06] VITALS: BP 136/79; PULSE 109; RESP 18; TEMP 37.6; O2SAT 98; BMI 27.6
[2022-05-13 20:30] LABS: Influenza A, PCR Not Detected (NotDetected); Influenza B, PCR Not Detected (NotDetected)
[2022-05-13 20:35] LABS: Basophils % 0.3 % (0.1-2.0); Eosinophils % 0.4 % (0.1-12.0); Hematocrit 31.2 % (37.0-47.0); Hemoglobin 10.4 g/dL (12.2-16.2); Lymphocytes # 0.5 K/mm3 (0.7-4.5); Lymphocytes % 6.7 % (10-50); Mean Corpuscular HGB Conc 33.3 g/dL (31.8-35.4); Mean Corpuscular Hemoglobin 30.2 pg (27.0-31.2); Mean Corpuscular Volume 90.7 fl (81-99); Mean Platelet Volume 8.5 fl (7.4-10.4); Monocytes # 0.3 K/mm3 (0.1-1.0); Monocytes % 3.6 % (1.7-9.3); Neutrophils # 6.9 K/mm3 (1.8-7.8); Neutrophils % 89.1 % (37.0-80.0); Platelet Count 328 K/mm3 (142-424); Red Blood Count 3.44 M/mm3 (4.20-5.40); Red Cell Distribution Width 14.1 % (11.5-17.5); White Blood Count 7.7 K/mm3 (4.8-10.8)
[2022-05-13 20:38] LABS: MANUAL DIFFERENTIAL MANUAL DIFFERENTIAL (MANUAL DIFF)
[2022-05-13 20:57] LABS: Coronavirus 19, PCR Detected (NotDetected)
[2022-05-13 21:21] LABS: Lymphocytes % 6 % (10-50); Monocytes % 3 % (2-9); Neutrophils % 91 % (42-76); Total Cells Counted 100
[2022-05-13 21:22] LABS: Platelet Estimate Normal; RBC Morphology Normal
[2022-05-14 07:36] VITALS: BP 117/56; PULSE 96; RESP 22; TEMP 37.1; O2SAT 96
--- NOTE | 2022-05-14 11:06 | HMH.ANESCL ---
[facility] Anesthesia Checklist - Patient Identification Patient Identification: Arm Band - Structural Data Admitted From: Inpatient Planned Operative Procedure/s: Labor Epidural Consent for Planned Operative Procedure(s) Verified: Yes Verified Documents: Surgical Consent, History and Physical - NPO Status Verified Time NPO: 00:00 - Additional verifications Anesthesia Reactions: No - Airway Assessment C-Spine Mobility Assessed: Yes TMJ Mobility Assessed: Yes Dentition: Good Dentition - Neurological Assessment Level of Consciousness: Awake, Alert - Anesthesia Plan Anesthesia Risk discussed: Yes Anesthesia Plan: Verified ASA Class: II Anesthesia Type: Epidural [facility] History I have reviewed the patient's past medical history: Yes Medical History: Denies:: Diabetes Mellitus Type 1, Diabetes Mellitus Type 2, Hypertension *Have you ever received a pneumonia vaccine?: No *Have you received a flu vaccine this season?: No Other Medical History: Denies: Other Anesthesia experience/problems:: nac Other Surgeries: Yes: No Previous Surgery. No: Amputation: No Fractures: No - *Social History Smoking Status: Never smoker Alcohol Intake: never Alcohol Intake Frequency:: other Substance Use Type: denies use *Occupational Status:: unemployed Housing: house *Travel in the last 8 weeks: None Family Hx:: No significant family history FINISHER DENTURE history: No FINISHER DENTURE history Para: 1
--- NOTE | 2022-05-14 16:03 | HMH.HP ---
*Admission Date: 05/13/22 *Chief complaint: 1. Covid 19 symptoms 2. Induction of labor *History of present illness: 26 yo @ 39 10/20 for induction of labor She presented on the evening prior to scheduled induction with respiratory complaints and positive covid 19 result She was admitted early for IV fluids and monitoring care at [facility]-- Dr. Garsia complicated by anxiety/depression but she discontinued SSRI treatment due to problematic side effects She failed 1 hr GTT with 141 result but did not have 3 hr GTT done [facility] History I have reviewed the patient's past medical history: Yes Medical History: Denies:: Diabetes Mellitus Type 1, Diabetes Mellitus Type 2, Hypertension *Have you ever received a pneumonia vaccine?: No *Have you received a flu vaccine this season?: No Other Medical History: Denies: Other Anesthesia experience/problems:: nac Other Surgeries: Yes: No Previous Surgery. No: Amputation: No Fractures: No - *Social History Smoking Status: Never smoker Alcohol Intake: never Alcohol Intake Frequency:: other Substance Use Type: denies use *Occupational Status:: unemployed Housing: house *Travel in the last 8 weeks: None Family Hx:: No significant family history AGRICULTURAL SALES REPRESENTATIVE history: No AGRICULTURAL SALES REPRESENTATIVE history Para: 1 Review of Systems - Review of Systems Review of systems:: pertinent systems reviewed and negative unless documented below - *Genitourinary Denies abnormal vaginal bleeding Meds Home Medications Medication Instructions Recorded Confirmed Type ondansetron 4 mg disintegrating 4 mg PO Q4H PRN #30 tab 10/16/21 05/14/22 Rx tablet pediatric multivitamin no.76 2 tab PO DAILY tab 10/16/21 05/14/22 History Ferrous Sulfate 325 mg PO DAILY 05/14/22 05/14/22 History Omeprazole Magnesium 20 mg PO DAILY 05/14/22 05/14/22 History Allergies Allergy/AdvReac Type Severity Reaction Status Date / Time Penicillins Allergy Verified 05/08/22 15:32 Exam Vital signs and Labs for Last 24 Hours: Temp Pulse Resp BP Pulse Ox 98.8 F 96 H 22 117/56 L 96 05/14/22 07:36 05/14/22 07:36 05/14/22 07:36 05/14/22 07:36 05/14/22 07:36 Laboratory Results - last 24 hr 05/13/22 18:26: Urine Color Yellow, Urine Appearance Clear, Urine pH 7.0, Ur Specific [place] 1.020, Urine Protein Negative, Urine Glucose (UA) Negative, Urine Ketones Trace, Urine Blood Negative, Urine Nitrate Negative, Urine Bilirubin Negative, Urine Urobilinogen 1.0, Ur Leukocyte Esterase Negative, Urine WBC Occasional, Ur Squamous Epith Cells Occasional, Amorphous Sediment 1+ 05/13/22 18:26: Urine Opiates Screen Negative, Urine Methadone Screen Negative, Ur Barbituates Screen Negative, Ur Phencyclidine Scrn Negative, Ur Amphetamines Screen Negative, U Benzodiazepines Scrn Negative, Urine Cocaine Screen Negative, U Marijuana (THC) Screen Negative 05/13/22 20:15: WBC 7.7, RBC 3.44 L, Hgb 10.4 L, Hct 31.2 L, MCV 90.7, MCH 30.2, MCHC 33.3, RDW 14.1, Plt Count 328, MPV 8.5, Neut % (Auto) 89.1 H, Lymph % (Auto) 6.7 L, [place] % (Auto) 3.6, Eos % (Auto) 0.4, Baso % (Auto) 0.3, Neut # (Auto) 6.9, Lymph # (Auto) 0.5 L, [place] # (Auto) 0.3, Eos # (Auto) 0.0, Baso # (Auto) 0.0, Total Counted 100, Neutrophils % (Manual) 91 H, Lymphocytes % (Manual) 6 L, Monocytes % (Manual) 3, Platelet Estimate Normal, RBC Morphology Normal 05/13/22 20:15: SARS-CoV-2 (PCR) Detected A, Influenza A Untype (PCR) Not detected, Influenza Type B (PCR) Not detected 05/13/22 20:15: Blood Type A Positive, Antibody Screen Negative I & O for Last 24 hours: Intake & Output 05/12/22 05/13/22 05/14/22 05/15/22 11:59 11:59 11:59 11:59 Weight 128 lb - Constitutional no acute distress - *Routine HEENT Exam Head: Present: normocephalic Eye: Absent: scleral injection, conjunctivae pink ENT: Present: mucous membranes moist - *Routine Neck Exam Present: supple. Absent: lymphadenopathy - *Routine Respiratory Exam Present: crackles - *Routi
--- NOTE | 2022-05-14 17:49 | HMH.DN ---
- Delivery Note Delivery Date:: 05/14/22 Delivery Time:: 16:47 Anesthesia Type: Epidural Was labor medically induced?: Yes Induction method: per pitocin protocol Gestational age (weeks): 39 delivered prior to 39 weeks?: No Gender: Female at 1 minute: 7 at 5 minutes: 9 Delivery Procedure:: Vacuum assisted vaginal delivery of liveborn over intact perineum. Indication for operative vaginal delivery: maternal respiratory difficulty with pushing and ineffective maternal pushing Vacuum applied to vertex at +2 station. Infant delivered in 2 pulls over 2 contractions, using vacuum in standard fashion. Apgars: 7 & 9 placed immediately on maternal abdomen for nursing assessment & SAUD immediately after umbilical cord clamped/cut Placenta spontaneously expressed and examined; noted to be complete/intact 2cm vaginal laceration right vaginal sidewall repaired with 2-0 vicryl. EBL: 300 All sponge/needle/instrument counts correct at conclusion of procedure Disposition: Mother and infant stable to recovery Laceration:: vaginal Placental Delivery Description: Spontaneous
[2022-05-14 21:29] LABS: Hematocrit 23.7 % (37.0-47.0); Hemoglobin 7.8 g/dL (12.2-16.2)
[2022-05-15 07:11] LABS: Hematocrit 23.9 % (37.0-47.0)
--- NOTE | 2022-05-15 13:07 | HMH.ACPN2 ---
Internal Medicine - PN: Subj *Date: 05/15/22 *Time: 13:07 Interval history: PPD #1 VAVD hemorrhage several hours after delivery with drop in Hgb from 10.9 to 8 She is asymptomatic with anemia but will be given IV iron today Scheduled methergine x 24 hours Tolerating regular diet Ambulating and voiding without difficulty Exam Vital signs and Labs for Last 24 Hours: Temp Pulse Resp BP Pulse Ox 98.8 F 96 H 22 117/56 L 96 05/14/22 07:36 05/14/22 07:36 05/14/22 07:36 05/14/22 07:36 05/14/22 07:36 Laboratory Results - last 24 hr 05/13/22 20:15: Blood Type A Positive, Antibody Screen Negative, Crossmatch (AHG) See Detail 05/14/22 21:06: Hgb 7.8 L, Hct 23.7 L 05/15/22 06:56: Hgb 8.0 L, Hct 23.9 L I & O for Last 24 hours: Intake & Output 05/13/22 05/14/22 05/15/22 05/16/22 11:59 11:59 11:59 11:59 Weight 128 lb Narrative: CONSTITUTIONAL: no acute distress HEENT: mucous membranes moist PULMONARY: breathing unlabored without audible wheezes CV: no tachycardia or visible JVD; normal LE peripheral pulses ABD: soft, NT/ND, no guarding : fundus firm at/below umbilicus SKIN: no visible rash or lesions EXT: 1+ edema LEs NEURO: alert/oriented, no altered mental status PSYCH: appropriate mood and demeanor Assessment and Plan (1) 39 weeks gestation of Status: Acute Category: Medical Code(s): Z3A.39 - 39 weeks gestation of (2) COVID-19 affecting , antepartum Status: Acute Category: Medical Code(s): O98.519 - Other viral diseases complicating , unspecified trimester; U07.1 - COVID-19 (3) Anxiety and depression Status: Acute Category: Medical Code(s): F41.9 - Anxiety disorder, unspecified; F32.A - Depression, unspecified (4) hemorrhage Status: Acute Category: Medical Code(s): O72.1 - Other immediate hemorrhage (5) Acute blood loss anemia Status: Acute Category: Medical Code(s): D62 - Acute posthemorrhagic anemia - Assessment and plan all Dx Assessment and Plan for all problems:: Routine care Continue schedule methergine x 24 hours IV iron today Anticipate discharge home tomorrow
--- NOTE | 2022-05-16 09:04 | HMH.OBDCSM ---
General - General Admission date:: 05/13/22 Discharge date: 05/16/22 HPI - History of Present Illness History of present illness: PPD # 2 s/p VAVD Patient is resting in bed comfortably. No complaints or concerns. She is bottle feeding. Light lochia. Pain controlled. Tolerating regular diet. Voiding without difficulty. Passing flatus. Denies headaches, vision changes and swelling. Hospital Course Hospital Course: Ms Leanne Babb is a 26 yo at 39w1d admitted to [facility] Labor and Delivery on 05/13/22 for scheduled induction of labor. She had a vacuum assisted vaginal delivery on 05/14/22. She delivered a girl, APGARs were 7, 9. EBL was 300 mL. She had hemorrhage several hours after delivery. She received Methergine x 24 hours. PPD #1 She was doing well. No chief complaints. She is bottle feeding. Vitals were stable. Heart was regular rate and rhythm. Lungs were clear to auscultation. Abdomen was soft, nontender, uterine fundus firm and below umbilicus. Lochia was light. Hgb decreased to 7.8 from 10.4. She received IV Venofer 200 mg x 1 dose. PPD # 2 She was doing well. She had no chief complaints. Reported decreased lochia. She was urinating without difficulty. Passing flatus. Pain was controlled. She had no nausea, vomiting, fever/chills, chest pain or shortness of breath. Vitals were stable. Heart was regular rate and rhythm. Lungs were clear to auscultation. Abdomen was soft, nontender, uterine fundus firm and below umbilicus. Extremities with trace bilateral lower extremity edema. She had no calf tenderness to palpation. Normal hospital course. During this admission, patient's hemoglobin and hematocrit were: 05/13/22: Hgb 10.4, Hct 31.2 05/14/22: Hgb 7.8, Hct 23.7 05/15/22: Hgb 8.0, Hct 23.9 Objective Vital signs: Temp Pulse Resp BP Pulse Ox 98.8 F 96 H 22 117/56 L 96 05/14/22 07:36 05/14/22 07:36 05/14/22 07:36 05/14/22 07:36 05/14/22 07:36 no acute distress - *Routine HEENT Exam Head: Present: normocephalic Eye: Absent: conjunctivae pink ENT: Present: mucous membranes moist - *Routine Respiratory Exam Present: CTA bilaterally - *Routine Cardiovascular Exam Present: RRR - *Routine Abdominal Exam Present: soft, normoactive bowel sounds. Absent: tenderness, distended - *Routine Extremities Exam Present: edema (trace bilateral lower extremity edema), full ROM. Absent: calf tenderness - *Routine Neurological Exam Present: alert, oriented X3 DS: Diagnosis - Discharge Diagnosis (1) 39 weeks gestation of Status: Acute (2) COVID-19 affecting , antepartum Status: Acute (3) Anxiety and depression Status: Acute (4) hemorrhage Status: Acute (5) Acute blood loss anemia Status: Acute Discharge Plan - Patient Discharge Instructions ACTIVITY: Continue current activity DIET: regular diet - Follow up Plan Disposition: Home, Self-Care Condition at discharge:: Stable Home Medications: Home Medications Medication Instructions Recorded Confirmed Type ondansetron 4 mg disintegrating 4 mg PO Q4H PRN #30 tab 10/16/21 05/14/22 Rx tablet pediatric multivitamin no.76 2 tab PO DAILY tab 10/16/21 05/14/22 History Ferrous Sulfate 325 mg PO DAILY 05/14/22 05/14/22 History Omeprazole Magnesium 20 mg PO DAILY 05/14/22 05/14/22 History Ibuprofen [Motrin 400mg 800 mg PO Q8HP PRN #20 tab 05/16/22 Rx tablet] Prescriptions/Medication Reconciliation: New Ibuprofen [Motrin 400mg tablet] 800 mg PO Q8HP PRN #20 tab PRN Reason: pain Continued Ferrous Sulfate 325 mg PO DAILY Omeprazole Magnesium 20 mg PO DAILY Discontinued pediatric multivitamin no.76 2 tab PO DAILY tab ondansetron 4 mg disintegrating tablet 4 mg PO Q4H PRN #30 tab PRN Reason: nausea and vomiting - Problem Reconciliation Problems Reviewed?: Yes
== END 2022-05-16 12:00 | disposition home or self-care (01) | DRG 805 ==
LOC: OBOUT 19:30 → OB 19:30
PROVIDERS: Obstetrics & Gynecology; Admitting Provider Nurse Practitioner Obstetrics & Gynecology; PCP Internal Medicine; Visit Provider Nurse Practitioner Obstetrics & Gynecology
DX: O75.81 Maternal exhaustion complicating labor and delivery (principal); U07.1 COVID-19; Z37.0 Single live birth; D62 Acute posthemorrhagic anemia; O98.513 Other viral diseases complicating pregnancy, third trimester; O66.5 Attempted application of vacuum extractor and forceps; Z3A.39 39 weeks gestation of pregnancy; O70.1 Second degree perineal laceration during delivery; O72.1 Other immediate postpartum hemorrhage; O99.343 Other mental disorders complicating pregnancy, third trimester; F41.8 Other specified anxiety disorders
CPT/HCPCS: 59409; 36415; 59025; 80305; 81001; 85007; 85014; 85018; 85025; 86850; 94761; C1758; C9803; G0283; J1756; J2405; U0003; U0005

== ENCOUNTER → 2022-06-30 10:38 | Outpatient (CLI) | payer OTHER, SELFPAY ==
[2022-06-30 11:55] LABS: Basophils # 0.1 K/mm3 (0-0.2); Eosinophils # 0.1 K/mm3 (0.0-0.4); Eosinophils % 1.9 % (0.1-12.0); Hemoglobin 11.2 g/dL (12.2-16.2); Lymphocytes # 2.7 K/mm3 (0.7-4.5); Lymphocytes % 46.9 % (10-50); Mean Corpuscular Volume 90.2 fl (81-99); Monocytes # 0.2 K/mm3 (0.1-1.0); Monocytes % 3.8 % (1.7-9.3); Neutrophils # 2.6 K/mm3 (1.8-7.8); Neutrophils % 45.4 % (37.0-80.0); Platelet Count 461 K/mm3 (142-424); Red Blood Count 3.99 M/mm3 (4.20-5.40); Red Cell Distribution Width 15.7 % (11.5-17.5); White Blood Count 5.7 K/mm3 (4.8-10.8)
[2022-06-30 12:21] LABS: Chloride 104 mmol/L (98-107)
[2022-06-30 12:22] LABS: Potassium 4.4 mmoL/L (3.5-5.1); Sodium 140 mmol/L (136-145)
[2022-06-30 12:24] LABS: Alanine Aminotransferase 9 U/L (12-78); Aspartate Amino Transferase 31 U/L (14-36); Blood Urea Nitrogen 10 mg/dl (7-17); Estimated Glomerular Filt Rate 150 ml/min (>60); GFR (African American) 182 ML/MIN (>60); HCG Qualitative, Serum Negative (Negative)
[2022-06-30 12:25] LABS: Albumin Level 4.1 g/dl (3.5-5.0); Albumin/Globulin Ratio 1.5 (1.1-1.8); Alkaline Phosphatase 125 U/L (38-126); Anion Gap 16.4 mEq/L (5-15); Calcium 8.4 mg/dl (8.4-10.2); Carbon Dioxide 24 mmol/L (22.0-30.0); Globulin 2.8 g/dL (1.3-3.2); Glucose 82 mg/dl (74-100); Total Protein,Serum 6.9 g/dl (6.3-8.2)
[2022-06-30 12:26] LABS: Bilirubin,Total < 0.1 mg/dl (0.2-1.3)
== END ==
PROVIDERS: PCP Internal Medicine; Visit Provider Obstetrics & Gynecology
DX: Z01.812 Encounter for preprocedural laboratory examination (principal)
CPT/HCPCS: 36415; 80053; 84703; 85025

== ENCOUNTER 2022-07-02 06:01 | Day surgery (SDC) | payer OTHER, SELFPAY ==
[2022-06-29 09:36] VITALS: BMI 23.8
[2022-07-02] VITALS (14 sets, daily range): BP systolic 127–140; BP diastolic 67–87; PULSE 53–96; RESP 14–18; TEMP 36.2–43; O2SAT 93–100
--- NOTE | 2022-07-02 07:23 | EXP.ANES.CKL ---
[facility] Medical History History of anemia Surgical History No significant past surgical history Family History Other No significant family history Social History (Updated 07/02/22 @ 06:29 by Autumn Mckeon RN) Smoking Status: Never smoker second hand exposure: Yes alcohol intake: never substance use type: denies use current occupational status: unemployed Travel in the last 8 weeks: None housing: house [facility] Anesthesia Checklist Patient Identification Patient Identification: Arm Band and Verbal (Name & ) Structural Data Admitted From: Home Planned Operative Procedure/s: BTL Verified Documents: Surgical Consent NPO Status Verified Time NPO: 00:00 Chart Verification Results Verified: CBC, BMP and HCG Additional verifications Patient : No Anesthesia Reactions: No Hx Blood Transfusions: No Blood Transfusion Reaction: No Airway Assessment C-Spine Mobility Assessed: Yes TMJ Mobility Assessed: Yes Dentition: Good Dentition Neurological Assessment Level of Consciousness: Awake, Alert and Appropriate Anesthesia Plan Anesthesia Risk discussed: Yes ASA Class: II Anesthesia Type: General
--- NOTE | 2022-07-02 08:45 | P.PNANES_ITS ---
[facility] Anesthesia Record Part I Anesthesia Record I Intake, IV Amount: 1,100 Estimated blood loss (mL): 5 Urine output (mL): 0 Blood Products used (#): none Blood Pressure: 137/71 SaO2: 93 Pulse Rate: 96 Respiratory Rate: 16 Temperature: 98 F Patient is:: Drowsy and Stable Stable to PACU at:: 08:40
--- NOTE | 2022-07-02 09:21 | SUR.PHASEI ---
0912 called and gave detailed report to Rick Archuleta RN 0915 transported via stretcher to post op. vital signs stable. states she has cramping pain about a 1. left in stable condition with Rick Archuleta RN at bedside.
--- NOTE | 2022-07-02 10:00 | EXP.OP.NOTE ---
Date of procedure: 07/02/22 Pre-op Diagnosis:: Undesired fertility Post-op Diagnosis:: Same Procedure performed:: Laparoscopic bilateral tubal ligation Surgeon:: Frieda Garsia MD SENIOR ELECTRICAL PROJECT MANAGER:: Gurinder Richey Anesthesia: RICARDO Estimated blood loss (mL): 5 Operative findings:: Normal appearing uterus, fallopian tubes and ovaries Operative note:: The patient was taken to the operating room and general anesthesia was administered. She was prepped/draped in lithotomy position. A uterine manipulator was placed without difficulty. Gloves were changed and attention was turned to the abdomen. Lidocaine 1% with epi was injected subcutaneously in umbilical fold and suprapubic region. A 5mm skin incision was made in the umbilical fold and the Verees needle was inserted through the peritoneum and into the abdominal cavity in standard fashion. The abdomen was insufflated with CO2 gas. A 5mm non-bladed trocar was inserted directly into the abdominal cavity and appropriate placement was confirmed with the laparoscope. No intra-abdominal injuries occurred during entry into the abdominal cavity, as confirmed visually with the laparoscope. The patient was placed in trendelenburg and a 8mm skin incision was made 2cm above the pubic symphysis. A 8mm non-bladed trocar was inserted under direct visualization, without complication. The uterus was elevated out of the pelvis in order to better visualize the anatomy. A survey of the pelvis and abdomen revealed the findings noted above. The uterus was angled towards the patient right and the left fallopian tube was grasped and a Filshie clip was placed over the tube. The clip was noted to completely occlude the tube. The uterus was then angled towards the patient left, and the right fallopian tube was grasped and a Filshie clip was placed over the tube. The clip was noted to completely occlude the tube. The uterine manipulator was removed. A small abrasion was noted on posterior uterine wall from the manipulator and montez was placed over this abrasion for hemostasis. The abdomen was then evacuated of gas and all trocars removed. The skin incisions were closed with 4-0 monocryl. The patient tolerated the procedure well. Sponge/lap/needle/instrument counts were correct at conclusion of procedure. She was taken out of lithotomy position and awakened from anesthesia, and was taken to the recovery room in stable condition. Condition: stable Disposition: PACU Specimens:: None Complications:: None
--- NOTE | 2022-07-02 15:19 | EXP.ANES.II ---
[facility] Anesthesia Record Part II Anesthesia Record Part II Discharge Time: 09:14 Destination: Surgical Day Care (OP Surgery) PACU nurse assessment reviewed?: Yes Patient Condition:: Good Anesthesia Complications:: None Swallowing reflex intact?: Yes Cyanosis?: No Blood Pressure: 133/81 Pulse Rate: 64 Temperature: 97.8 F Mental Status: Alert & Oriented Pain level:: 1 Nausea and/or vomitting:: None Intake, IV Amount: 0
== END 2022-07-02 10:00 | disposition home or self-care (01) ==
PROVIDERS: PCP Internal Medicine; Visit Provider Obstetrics & Gynecology
PROC: 0UL74ZZ Occlusion of Bilateral Fallopian Tubes, Percutaneous Endoscopic Approach (ICD-10-PCS; CPT 58670; principal; 2022-07-02 07:30)
DX: Z30.2 Encounter for sterilization (principal); Z88.0 Allergy status to penicillin
CPT/HCPCS: 58671; 96374; J2405; J2710

== ENCOUNTER 2022-08-23 10:25 | Emergency (ER) | payer OTHER, SELFPAY ==
[2022-08-23 11:33] LABS: UTC Influenza A Antigen Positive (Negative)
[2022-08-23 11:34] LABS: UTC Influenza B Antigen Negative (Negative)
[2022-08-23 11:37] VITALS: BP 122/95; PULSE 103; RESP 18; TEMP 36.6; O2SAT 100; BMI 21.6
--- NOTE | 2022-08-23 11:39 | EXP.UTC ---
Discharge Plan Disposition Patient Disposition: Home, Self-Care Condition: Good Prescriptions Prescriptions: New oseltamivir [Tamiflu] 75 mg capsule 75 mg PO BID 5 Days Qty: 10 0RF [id number] [Bromfed DM] 2-30-10 mg/5 mL Syrup 5 ml PO Q6H PRN (Reason: Cough) Qty: 240 0RF ondansetron 4 mg Tablet,Disintegrating 4 mg PO Q8H PRN (Reason: Nausea) Qty: 20 0RF Referrals Follow up/Referrals: Reginaldo Frazier MD [Primary Care Provider] - See instructions Activity Restrictions/Add. Instructions Additional Instructions/Restrictions: Drink plenty of fluids. Take tylenol or ibuprofen for pain or fever. Take the medications as directed. Follow up with your regular doctor. GO TO THE ER FOR ANY WORSENING SYMPTOMS Clinical Impressions Clinical Impression: Influenza A Instructions Patient Instructions: DI for Influenza -- Adult, Oseltamivir Discharge ED Provider: Sky Castellanos [facility] General Stated complaint: Nausea, flu exposure Mode of Arrival: Ambulatory Source of Information: Patient Limitations: No Limitations Time Seen by Provider: 08/23/22 11:39 Description of Symptoms (Recalled from Triage Doc. by RN): pt comes in with c/o sore throat, fever, headache. symptoms began yesterday. pt was exposed to flu HEENT Symptoms (Recalled from RN notes): Yes Resp Symptoms (Recalled from RN notes): No Skin Symptoms (Recalled from RN notes): No MS Symptoms (Recalled from RN notes): No Functional Status (Recalled from RN notes): n/a History of Present Illness Provider Complaint: She states that since last night she has had headache, chills, fever, and a cough. Her child was diagnosed with influenza a yesterday. Related Data Previous Rx's Medication Instructions Recorded tuwdyyaffogtsbx-ktrpmoeanamppzm-RF 5 ml PO Q6H PRN Cough #240 mL 08/23/22 2 mg-30 mg-10 mg/5 mL oral syrup (Bromfed DM) ondansetron 4 mg disintegrating 4 mg PO Q8H PRN Nausea #20 tabs 08/23/22 tablet oseltamivir 75 mg capsule (Tamiflu) 75 mg PO BID 5 days #10 caps 08/23/22 Allergies Allergy/AdvReac Type Severity Reaction Status Date / Time Penicillins Allergy Verified 08/23/22 11:39 Worker's Comp Is this a Worker's Comp case?: No PFSH PFSH Medical History History of anemia Surgical History Status post tubal ligation Family History Other No significant family history Social History Smoking Status: Never smoker second hand exposure: Yes alcohol intake: never substance use type: denies use current occupational status: unemployed Travel in the last 8 weeks: None housing: house ROS Obtained: Yes All systems reviewed & no additional complaints except as documented Constitutional Constitutional: Reports chills and Reports fever(s) Eyes Eyes: Denies eye discharge ENT Ears, Nose, Mouth, and Throat: Reports as per HPI Cardiovascular Cardiovascular: Denies chest pain Respiratory Respiratory: Denies chest congestion and Reports cough Gastrointestinal Gastrointestingal: Reports nausea; Denies abdominal pain, constipation, cramping, diarrhea or vomiting Musculoskeletal Musculoskeletal: Denies arthralgias Integumentary/Breasts Skin/Breast: Denies rash Neurologic Neurologic: Denies paresthesias Physical Exam General General appearance: alert and in no apparent distress Head Head exam: atraumatic, normocephalic and normal inspection Eye Eye exam: Present normal appearance, PERRL and EOMI ENT ENT exam: Present normal exam, normal oropharynx, mucous membranes moist, TM's normal bilaterally and normal external ear exam Neck Neck exam: Present normal inspection, full ROM and trachea midline; Absent meningismus or lymphadenopathy Chest Chest inspection: Present normal inspection and
[2022-08-23 12:01] VITALS: BP 122/95; PULSE 103; RESP 18; TEMP 36.6
== END 2022-08-23 12:03 | disposition home or self-care (01) ==
PROVIDERS: Emergency Provider Nurse Practitioner Family; PCP Internal Medicine
DX: J10.1 Influenza due to other identified influenza virus with other respiratory manifestations (principal); R50.9 Fever, unspecified; R11.0 Nausea; J45.909 Unspecified asthma, uncomplicated; Z79.899 Other long term (current) drug therapy; Z88.0 Allergy status to penicillin
CPT/HCPCS: 87804; 99212; G0463

== ENCOUNTER → 2022-10-31 13:01 | Outpatient (CLI) | payer OTHER, SELFPAY ==
[2022-10-31 15:00] LABS: HCG,Quantitative < 2 mIU/ml (0-5.42)
== END ==
PROVIDERS: PCP Internal Medicine; Visit Provider Obstetrics & Gynecology
DX: N92.6 Irregular menstruation, unspecified (principal)
CPT/HCPCS: 36415; 84702

== ENCOUNTER 2024-01-14 11:55 | Emergency (ER) | payer OTHER, SELFPAY ==
[2024-01-14 12:05] VITALS: BP 120/85; PULSE 69; RESP 18; TEMP 37.1; O2SAT 97; BMI 25.5
--- NOTE | 2024-01-14 12:06 | PC.NURSE ---
sent up rapid covid and flu at 12:05
[2024-01-14 12:13] LABS: Coronavirus 19, PCR Not Detected (NotDetected); Influenza A, PCR Not Detected (NotDetected); Influenza B, PCR Not Detected (NotDetected)
--- NOTE | 2024-01-14 12:14 | ED_ITS ---
Discharge Plan Disposition Patient Disposition: Home, Self-Care Prescriptions Prescriptions: New yyohbnjjwhwcefm-yxudeomqi-GZ [Bromfed DM] 2-30-10 mg/5 mL syrup 10 ml PO Q4-6H PRN (Reason: cough/sinus symptoms) Qty: 200 0RF Referrals Follow up/Referrals: Reginaldo Frazier MD [Primary Care Provider] - See instructions Activity Restrictions/Add. Instructions Additional Instructions/Restrictions: If symptoms persist, follow up with Primary care provider. Clinical Impressions Clinical Impression: Upper respiratory tract infection Qualifiers: URI type: unspecified URI Qualified Code(s): J06.9 - Acute upper respiratory infection, unspecified Instructions Patient Instructions: DI for Viral Upper Respiratory Infection -- Adult Discharge ED Provider: Virgen Major [facility] General Stated complaint: cough, chest congestion, runny nose Mode of Arrival: Ambulatory Source of Information: Patient Limitations: No Limitations Time Seen by Provider: 01/14/24 12:13 Description of Symptoms (Recalled from Triage Doc. by RN): Pt's symptoms are cough, chest congestion, runny nose, and sinus pressure. HEENT Symptoms (Recalled from RN notes): Yes Resp Symptoms (Recalled from RN notes): No Skin Symptoms (Recalled from RN notes): No MS Symptoms (Recalled from RN notes): No Functional Status (Recalled from RN notes): n/a History of Present Illness Provider Complaint: pt reports that she started feeling bad over the weekend with cough, clear sinus drainage, body aches, and chills. She denies taking anything for her symptoms. Children have had similar symptoms. Related Data Previous Rx's Medication Instructions Recorded gkcjmpcrvabcpkp-sznjhrgtqhogrqh-DN 10 ml PO Q4-6H PRN cough/sinus 01/14/24 2 mg-30 mg-10 mg/5 mL oral syrup symptoms #200 mL (Bromfed DM) Allergies Allergy/AdvReac Type Severity Reaction Status Date / Time Penicillins Allergy Verified 01/14/24 12:13 Worker's Comp Is this a Worker's Comp case?: No [facility] Disclaimer: The information contained in this section may have been updated after the patient was seen, as this information can be updated by other users. Medical History History of anemia Surgical History Status post tubal ligation Family History Other No significant family history Social History Smoking Status: Current every day smoker tobacco type: smokeless tobacco second hand exposure: Yes alcohol intake: never substance use type: denies use current occupational status: unemployed Travel in the last 8 weeks: None housing: house ROS Obtained: Yes All systems reviewed & no additional complaints except as documented Constitutional Constitutional: Reports system reviewed and no additional complaints, except as documented, Reports body ache, Reports chills, Reports headache(s) and Reports m alaise Eyes Eyes: Reports system reviewed and no additional complaints, except as documented ENT Ears, Nose, Mouth, and Throat: Reports system reviewed and no additional complaints, except as documented, Reports otalgia, Reports headache(s), Reports nasal congestion and Reports nasal discharge Cardiovascular Cardiovascular: Reports system reviewed and no additional complaints, except as documented Respiratory Respiratory: Reports system reviewed and no additional complaints, except as documented and Reports non-productive cough Gastrointestinal Gastrointestingal: Reports system reviewed and no additional complaints, except as documented Genitourinary Female Genitourinary: Reports system reviewed and no additional complaints, except as documented Musculoskeletal Musculoskeletal: Reports system reviewed and no additional complaints, except as documented Integumentary/Breasts Skin/Breast: Reports system reviewed and no additional complaints, except as documented Neurologic Neurologic: Reports system reviewed and no additional complaints, except as documented and Reports headache(s) Endocrine Endocrine: Reports system reviewed and no additional complaints, except as documented Hematologic/Lymphatic Henatologic/Lymphatic: Reports system reviewed and no additional complaints, except as documented Allergic/Immunologic Allergic/Immunologic: Reports system reviewed and no additional complaints, exc ept as documented Physical Exam General General appearance: alert Comment: ill appearing Head Head exam: atraumatic and normocephalic Eye Eye exam: Present normal appearance Expanded ENT Exam External ear exam: Present normal external inspection Nasal speculum exam: Bilateral: other (clear drainage) Mouth exam: Present normal external inspection Teeth exam: Present dental caries Throat exam: Present normal inspection Neck Neck exam: Present normal inspection Chest Chest inspection: Present normal inspection and symmetric chest wall rise Respiratory Respiratory exam: Present normal lung sounds bilaterally Cardiovascular Cardiovascular exam: Present regular rate and normal rhythm Abdominal Exam Abdominal exam: Present soft Extremities Exam Extremities exam: Present normal inspection Back Exam Back exam: Present normal inspection Neurological Exam Neurological exam: Present alert and oriented X3 Psychiatric Psychiatric exam: Present normal affect and normal mood Skin Skin exam: Present warm, dry and intact Lymphatic Lymphatic Findings: no adenopathy Medical Decision Making Anand Inquiry Pt receiving controlled substance: No Anand was queried for this patient: No Vital Signs: 01/14/24 12:05 Temperature 98.8 F Temperature Source Oral Pulse Rate [Right Radial] 69 Respiratory Rate 18 Blood Pressure [Right Arm] 120/85 Blood Pressure Mean [Right Arm] 96 Blood Pressure Source [Right Arm] Automatic Cuff Blood Pressure Position [Right Arm] Sitting 02 Sat by Pulse Oximetry 97 Oxygen Delivery Method Room Air Orders (Tests/Meds): ORDERS Category Date Time Status Rapid PCR Covid and Flu A/B Stat Lab 01/14/24 12:06 Received
[2024-01-14 12:27] VITALS: BP 120/85; PULSE 69; RESP 18; TEMP 37.1; O2SAT 97
== END 2024-01-14 12:27 | disposition home or self-care (01) ==
PROVIDERS: Emergency Provider Nurse Practitioner Family; PCP Internal Medicine
DX: J06.9 Acute upper respiratory infection, unspecified (principal); R05.9 Cough, unspecified; R09.81 Nasal congestion; M79.18 Myalgia, other site; F17.290 Nicotine dependence, other tobacco product, uncomplicated
CPT/HCPCS: 87636; 99212; 99214; G0463

== ENCOUNTER 2024-10-03 19:35 | Emergency (ER) | payer OTHER, SELFPAY ==
--- NOTE | 2024-10-03 19:30 | ECG_ITS ---
APPROVED REPORT Exam: Resting ECG HR:108 bpm ECG Measurements Heart Rate 108 AXES MT 152 P 35 QRSd 85 QRS 22 QT 323 T -50 QTc 387 Conclusion SINUS TACHYCARDIA LOW QRS VOLTAGE IN PRECORDIAL LEADS [QRS DEFLECTION < 1.0 mV IN CHEST LEADS] ST DEVIATION AND MODERATE T-WAVE ABNORMALITY, CONSIDER ANTEROLATERAL ISCHEMIA [-0.1+ mV T-WAVE IN V3-V6] ST DEVIATION AND MODERATE T-WAVE ABNORMALITY, CONSIDER INFERIOR ISCHEMIA [-0.1+ mV T-WAVE IN II/aVF] ABNORMAL ECG UNCONFIRMED REPORT Electronically signed by : Sky Garsia, 10/03/2024 23:27:44
[2024-10-03 19:35] VITALS: BP 134/73; PULSE 77; RESP 16; TEMP 36.9; O2SAT 100; BMI 23.8
--- NOTE | 2024-10-03 19:50 | PC.NURSE ---
rounded on pt at this time. pt voices no needs. mother at bedside.
--- NOTE | 2024-10-03 19:52 | XR_ITS ---
PROCEDURE INFORMATION: Exam: XR Chest Exam date and time: 10/03/2024 8:45 PM Age: 29 years old Clinical indication: Shortness of breath; Additional info: Short of breath TECHNIQUE: Imaging protocol: Radiologic exam of the chest. Views: 1 view. COMPARISON: No relevant prior studies available. FINDINGS: Lungs: Unremarkable. No consolidation. Pleural spaces: Unremarkable. No pleural effusion. No pneumothorax. Heart/Mediastinum: Unremarkable. No cardiomegaly. Bones/joints: Unremarkable. IMPRESSION: No acute findings.
--- NOTE | 2024-10-03 19:55 | ED_ITS ---
<Statement entered by Luc Garsia MD - 10/03/24 23:23> I was consulted by the RAMONA, and we discussed the complexity of the problems being addressed. I approved the treatment and management plan for this patient's care in the emergency department, thus performing a substantive portion of the medical decision making. Luc Garsia MD, ZOË, FACEP Discharge Plan Disposition Patient Disposition: Home, Self-Care Condition: Good Prescriptions Prescriptions: No Action sxyekkmydwbswuw-jpmcnchhy-QK [Bromfed DM] 2-30-10 mg/5 mL syrup 10 ml PO Q4-6H PRN (Reason: cough/sinus symptoms) Qty: 200 0RF Referrals Follow up/Referrals: Provider,Referral, [Referring] - See instructions Activity Restrictions/Add. Instructions Additional Instructions/Restrictions: Follow-up with PCP within the next few days. Drink lots of fluids. If any other problems or concerns, please return to the ED. Clinical Impressions Clinical Impression: Atypical chest pain, Vomiting Instructions Patient Instructions: DI for Atypical Chest Pain Print Language Print Language: Dominican Discharge ED Provider: Luc Garsia General Adult HPI General Chief complaint: Chest Pain Stated complaint: chest pain Time Seen by Provider: 10/03/24 19:51 Mode of Arrival: Wheelchair Source of Information: Patient Limitations: No Limitations Description of Symptoms (Recalled from ER Triage Doc. by RN): Pt presents to ED for CP that started around 9 or 10 this morning. Pt states she was sick with N/V since Saturday and started feeling better but today started having chest pain. Pt states it does not radiate and is more midsternal and that it comes and goes. Pt states she feels like her heart is racing. Pt is A&O*4, IV access obtained and EKG performed. History of Present Illness HPI narrative: This is a 29-year-old female who presents to the ED today for complaint of chest tightness that has been off and on throughout today. She started having nausea vomiting and diarrhea on Saturday. She says she threw up and had diarrhea the whole day on Saturday and it stopped today. She says she has been able to drink but not eat today. She says she got nervous when her chest started hurting. No other associated signs or symptoms at this time. Related Data Previous Rx's ?Medication ?Instructions ?Recorded fqnbehillacqizr-hvejxdbxgsqmpnq-CO 10 ml PO Q4-6H PRN cough/sinus 01/14/24 2 mg-30 mg-10 mg/5 mL oral syrup symptoms #200 mL (Bromfed DM) Allergies Allergy/AdvReac Type Severity Reaction Status Date / Time Penicillins Allergy Verified 01/14/24 12:13 [facility] Disclaimer: The information contained in this section may have been updated after the patient was seen, as this information can be updated by other users. Medical History History of anemia Surgical History Status post tubal ligation Family History Other No significant family history Social History Smoking Status: Unknown if ever smoked second hand exposure: Yes alcohol intake: never substance use type: denies use current occupational status: unemployed Travel in the last 8 weeks: None housing: house Have you lived/traveled outside [place] in past 30 days?: No Contact w/someone who lives/traveled outside [place] past 30 days?: No Exposure to someone with infectious disease in past 14 days?: No Do you have a fever (greater than 100.4 F or 38 C)?: No Have you tested positive for COVID-19: No Exposed to someone with COVID-19 in past 14 days?: No Do you have a sore throat?: No Do you have a cough?: Yes Do you have any weakness?: Yes Do you have any diarrhea?: No Are you experiencing any unusual bleeding?: No Do you have any muscle aches/pain?: Yes Do you have any abdominal pain?: Yes Are you experiencing loss of taste or smell?: Yes Other Medical History Have you received the Flu Vaccine for this season: No Have you received the Pneumonia Vaccine: No ROS Obtained: Yes Systems reviewed as appropriate & no additional complaints except as documented Constitutional Constitutional: Reports as per HPI Physical Exam General General appearance: alert and in no apparent distress Head Head exam: normocephalic Eye Eye exam: Present normal appearance and PERRL ENT ENT exam: Present normal exam and mucous membranes moist Neck Neck exam: Present normal inspection and trachea midline Chest Chest inspection: Present normal inspection and symmetric chest wall rise Respiratory Respiratory exam: Present normal lung sounds bilaterally Cardiovascular Cardiovascular exam: Present regular rate, normal rhythm, normal heart sounds, +S1 and +S2 Abdominal Exam Abdominal exam: Present soft and normal bowel sounds Extremities Exam Extremities exam: Present normal inspection, full ROM and normal capillary refill Neurological Exam Neurological exam: Present alert and oriented X3 Psychiatric Psychiatric exam: Present normal affect and normal mood Skin Skin exam: Present warm and dry Medical Decision Making Medical Records Screening: Per USPSTF and CDC recommendations, given the prevalence of disease in our region, it is our hospital?s policy to screen for HIV and viral Hepatitis for all patients aged 18 and over and those with ongoing risk factors. Anand Inquiry Pt receiving controlled substance: No Vital Signs: 10/03/24 19:35 10/03/24 20:00 Temperature 98.4 F Temperature Source Oral Pulse Rate 74 Pulse Rate [Left] 77 Respiratory Rate 16 14 Blood Pressure 131/78 Blood Pressure [Right Arm] 134/73 Blood Pressure Mean [Right Arm] 93 02 Sat by Pulse Oximetry 100 99 Oxygen Delivery Method Room Air Lab Data Lab Results 10/03/24 19:30: WBC 7.2, RBC 4.64, Hgb 14.3, Hct 42.8, MCV 92.2, MCH 30.8, MCHC 33.4, RDW 12.2, Plt Count 347, MPV 10.5 H, Neut % (Auto) 43.7, Lymph % (Auto) 47.8, Bowie % (Auto) 7.0, Eos % (Auto) 1.0, Baso % (Auto) 0.4, Neut # (Auto) 3.2, Lymph # (Auto) 3.5, Bowie # (Auto) 0.5, Eos # (Auto) 0.1, Baso # (Auto) 0.0, S odium 134 L, Potassium 3.4 L, Chloride 105, Carbon Dioxide 28, Anion Gap 4.4 L, BUN 10, Creatinine 0.60, Estimated Creat Clear 111, Estimated GFR 120, Est GFR ( Amer) 145, Glucose 89, Calcium 8.4, Magnesium 2.2, Total Bilirubin 0.5, AST 54 H, ALT 16, Alkaline Phosphatase 78, Troponin I < 0.01, Total Protein 7.4, Albumin 4.4, Globulin 3.0, Albumin/Globulin Ratio 1.5, Lipase 77, Serum HCG, Qual Negative 10/03/24 19:30 10/03/24 19:30 Orders (Tests/Meds): ED MEDICATIONS Discontinued Medications Generic Name Dose Route Start Last Admin Trade Name Freq PRN Reason Stop Dose Admin Sodium Chloride 1,000 mls @ 999 mls/hr 10/03/24 19:51 10/03/24 20:00 Sod Chlor 0.9% 1000ml Bag IV 10/03/24 20:51 999 mls/hr .Q1H1M ONE Administration Ondansetron HCl 4 mg 10/03/24 19:51 10/03/24 20:01 Ondansetron 4mg/2ml Vial IV 10/03/24 19:52 4 mg ONCE ONE Administration Potassium Chloride 40 meq 10/03/24 21:04 Potassium Chloride 20meq Tab PO 10/03/24 21:05 ONCE ONE ORDERS Category Date Time Status Chest XR -- portable [XR chest portable] Stat Exams 10/03/24 19:52 Taken CBC [Complete Blood Count Auto Diff] Stat Lab 10/03/24 19:30 Completed Comprehensive Metabolic Panel Stat Lab 10/03/24 19:30 Completed HCG Qualitative, Serum Stat Lab 10/03/24 19:30 Completed HIV Combo Stat Lab 10/03/24 19:30 Received Hep C Ab with Reflex to RNA Stat Lab 10/03/24 19:30 Received Lipase Stat Lab 10/03/24 19:30 Completed Magnesium Stat Lab 10/03/24 19:30 Completed Troponin I Q3H Lab 10/03/24 23:00 Ordered Troponin I Q3H Lab 10/04/24 02:00 Ordered Troponin I Stat Lab 10/03/24 19:30 Completed Medical Decision Narrative: Insert review patient is a 29-year-old female presenting to the emergency department for evaluation of chest tightness after having 2 days of vomiting. She has stopped vomiting but started having chest tightness early today. It is not constant it comes and goes.. Patient is hemodynamically stable and nontoxic-appearing upon arrival, afebrile. Differential diagnosis includes viral illness, hypokalemia, among others. Workup will be conducted with hematologic labs, specific imaging. Initial inventions include crystalloid bolus, and potassium. Initial workup reviewed by ar hematologic labs are remarkable for potassium of 3.4 otherwise negative workup. Troponin was negative. EKG was negative as well. Vitals are stable. Patient is stable for discharge home after she is being given her potassium. Critical Care Critical Care Time Critical Care Time: No
[2024-10-03 20:00] VITALS: BP 131/78; PULSE 74; RESP 14; O2SAT 99
[2024-10-03] MEDS: 0.9 % SODIUM CHLORIDE 1000ML 1,000 ML 999 ML IV (20:00)
[2024-10-03] MEDS: ONDANSETRON 4MG/2ML VIAL 4 MG IV (20:01)
[2024-10-03 20:40] LABS: HCG Qualitative, Serum Negative (Negative)
[2024-10-03 20:43] LABS: Basophils % 0.4 % (0.1-2.0); Eosinophils # 0.1 K/mm3 (0.0-0.4); Hematocrit 42.8 % (37.0-47.0); Hemoglobin 14.3 g/dL (12.2-16.2); Lymphocytes # 3.5 K/mm3 (0.7-4.5); Lymphocytes % 47.8 % (10-50); Mean Corpuscular HGB Conc 33.4 g/dL (31.8-35.4); Mean Corpuscular Hemoglobin 30.8 pg (27.0-31.2); Mean Corpuscular Volume 92.2 fl (81-99); Mean Platelet Volume 10.5 fl (7.4-10.4); Monocytes # 0.5 K/mm3 (0.1-1.0); Neutrophils # 3.2 K/mm3 (1.8-7.8); Neutrophils % 43.7 % (37.0-80.0); Platelet Count 347 K/mm3 (142-424); Red Blood Count 4.64 M/mm3 (4.20-5.40); Red Cell Distribution Width 12.2 % (11.5-17.5); White Blood Count 7.2 K/mm3 (4.8-10.8)
[2024-10-03 20:44] LABS: Albumin Level 4.4 g/dl (3.5-5.0); Chloride 105 mmol/L (98-107); Sodium 134 mmol/L (136-145)
[2024-10-03 20:45] LABS: Potassium 3.4 mmoL/L (3.5-5.1)
[2024-10-03 20:47] LABS: Alanine Aminotransferase 16 U/L (12-78); Albumin/Globulin Ratio 1.5 (1.1-1.8); Alkaline Phosphatase 78 U/L (38-126); Anion Gap 4.4 mEq/L (5-15); Aspartate Amino Transferase 54 U/L (14-36); Bilirubin,Total 0.5 mg/dl (0.2-1.3); Blood Urea Nitrogen 10 mg/dl (7-17); Calcium 8.4 mg/dl (8.4-10.2); Carbon Dioxide 28 mmol/L (22.0-30.0); Creatinine Clearance Estimated 111 mL/min (50-200); Estimated Glomerular Filt Rate 120 ml/min (>60); GFR (African American) 145 ML/MIN (>60); Glucose 89 mg/dl (74-100); Lipase 77 U/L (23-300); Total Protein,Serum 7.4 g/dl (6.3-8.2)
[2024-10-03 20:48] LABS: Magnesium 2.2 mg/dl (1.6-2.3)
[2024-10-03 21:01] LABS: Troponin I < 0.01 ng/ml (0.00-0.034)
[2024-10-03 21:29] LABS: HIV Combo NEGATIVE (Negative)
[2024-10-03 21:56] VITALS: BP 123/76; PULSE 79; RESP 18; TEMP 36.8; O2SAT 100
[2024-10-05 10:08] LABS: HCV Ab Non Reactive (Non Reactive)
== END 2024-10-03 21:57 | disposition home or self-care (01) ==
PROVIDERS: Nurse Practitioner; Emergency Provider Student in an Organized Health Care Education/Training Program; PCP Internal Medicine
DX: R07.89 Other chest pain (principal); R11.10 Vomiting, unspecified; R07.9 Chest pain, unspecified; R11.2 Nausea with vomiting, unspecified; R19.7 Diarrhea, unspecified
CPT/HCPCS: 71045; 80053; 83690; 83735; 84484; 84703; 85025; 86803; 87389; 93005; 96361; 96374; 99284; J2405; J7030

== ENCOUNTER 2025-01-16 12:16 | Emergency (ER) | payer OTHER, SELFPAY ==
--- NOTE | 2025-01-16 12:48 | XR_ITS ---
PROCEDURE INFORMATION: Exam: XR Right Ankle Exam date and time: 01/16/2025 1:00 PM Age: 29 years old Clinical indication: Pain; Ankle; Right TECHNIQUE: Imaging protocol: Radiologic exam of the right ankle. Views: 3 or more views. COMPARISON: CR XR ANKLE RT MIN 3V 01/16/2025 1:00 PM FINDINGS/IMPRESSION: Bones/joints: The distal right tibia and fibula are intact. There are suspected small avulsion fractures along the dorsum and distal aspect of the talus. There is also is suspected small avulsion fracture through the dorsal and proximal aspect of the navicular bone. No other fractures are identified. Soft tissues: Normal.
--- NOTE | 2025-01-16 12:48 | XR_ITS ---
PROCEDURE INFORMATION: Exam: XR Right Foot Exam date and time: 01/16/2025 1:00 PM Age: 29 years old Clinical indication: Pain; Foot; Right; Additional info: Pain, twisted ankle going down stairs TECHNIQUE: Imaging protocol: Radiologic exam of the right foot. Views: 3 or more views. COMPARISON: CR XR ANKLE RT MIN 3V 01/16/2025 1:00 PM FINDINGS/IMPRESSION: Bones/joints: Small avulsion fracture through the dorsum of the distal talus and small avulsion from the dorsal and proximal navicular bone. No other fractures identified. The metatarsals and calcaneus are intact. Soft tissues: No radiopaque foreign body or gas in the soft tissues.
[2025-01-16 12:49] VITALS: BP 137/97; PULSE 73; RESP 20; TEMP 36.8; O2SAT 99; BMI 23.8
--- NOTE | 2025-01-16 12:50 | XR_ITS ---
PROCEDURE INFORMATION: Exam: XR Right Tibia and Fibula Exam date and time: 01/16/2025 1:00 PM Age: 29 years old Clinical indication: Pain; Lower leg; Right; Additional info: Ankle pain/injury, twisted ankle going down stairs TECHNIQUE: Imaging protocol: Radiologic exam of the right tibia and fibula. Views: 2 views. COMPARISON: CR XR TIBIA FIBULA RT 2V 01/16/2025 1:00 PM FINDINGS/IMPRESSION: Bones/joints: There is normal anatomic alignment of the right tibia and fibula at the knee and ankle. No evidence of a fracture or destructive bone lesion. Again noted are suspected avulsion fractures at the dorsal and distal aspect of the right talus and dorsal and proximal aspect of the right navicular bone. Soft tissues: Normal.
--- NOTE | 2025-01-16 12:52 | ED_ITS ---
<Statement entered by Naomi Flores DO - 01/16/25 16:16> I was consulted by the RAMONA, and we discussed the complexity of the problems being addressed. I approved the treatment and management plan for this patient's care in the emergency department, thus performing a substantive portion of the medical decision making. I provided prescription for Prentiss for severe pain in the setting of foot fractures Naomi Flores DO Discharge Plan Disposition Patient Disposition: Home, Self-Care Condition: Good Prescriptions Prescriptions: New hydrocodone-acetaminophen 5-325 mg tablet 1 tab PO Q8H PRN (Reason: pain) Qty: 12 0RF No Action clindamycin HCl 300 mg capsule 300 mg PO TID 7 Days Qty: 21 0RF naproxen 500 mg tablet 500 mg PO BID Qty: 20 0RF clindamycin palmitate HCl 75 mg/5 mL recon soln 300 mg PO TID 7 Days Qty: 420 0RF Referrals Follow up/Referrals: Reginaldo Frazier MD [Primary Care Provider] - See instructions Activity Restrictions/Add. Instructions Additional Instructions/Restrictions: Weightbearing as tolerated rest Ice with cold pack for 20 minutes remove may repeat for comfort every hour Walking boot for support and swelling. Be sure not too tight but not to lose either Elevate with ankle above your heart as much as possible to help reduce swelling and therefore pain Ibuprofen and Tylenol as needed for pain. call Dr. Henriquez's office on Saturday for an appointment Clinical Impressions Clinical Impression: Avulsion fracture of ankle Qualifiers: Encounter type: initial encounter Fracture type: closed Laterality: right Q ualified Code(s): S82.891A - Other fracture of right lower leg, initial encounter for closed fracture Stand Alone Forms Stand Alone Forms: Work/School Release Instructions Patient Instructions: Ankle Fracture Print Language Print Language: Gambian Discharge ED Provider: Naomi Flores General Adult HPI <Betty Mcdowell ([facility]), REGISTERED HEALTH NURSE - Last Filed: 01/16/25 14:35> General Chief complaint: Extremity Injury, Lower Stated complaint: AO-1200 hours-01/16/25, Pain R foot Time Seen by Provider: 01/16/25 12:50 History of Present Illness HPI narrative: 29-year-old female presents for right foot pain. Patient states she was walking down the steps when she stepped down her foot twisted and she heard 2 pops. Patient states her foot is painful, numb, and hard to move her toes. Related Data Previous Rx's ?Medication ?Instructions ?Recorded clindamycin HCl 300 mg capsule 300 mg PO TID 7 days #21 caps 12/10/24 naproxen 500 mg tablet 500 mg PO BID #20 tabs 12/10/24 clindamycin palmitate HCl 75 mg/5 300 mg (20 mL) PO TID 7 days #420 12/11/24 mL oral solution mL hydrocodone 5 mg-acetaminophen 325 1 tab PO Q8H PRN pain #12 tabs 01/16/25 mg tablet Allergies Allergy/AdvReac Type Severity Reaction Status Date / Time Penicillins Allergy Verified 12/10/24 10:29 PFS <Betty Mcdowell ([facility]), REGISTERED HEALTH NURSE - Last Filed: 01/16/25 14:35> [facility] Disclaimer: The information contained in this section may have been updated after the patient was seen, as this information can be updated by other users. Medical History , REGISTERED HEALTH NURSE) History of anemia Surgical History , REGISTERED HEALTH NURSE) Status post tubal ligation Family History , REGISTERED HEALTH NURSE) No significant family history Social History , REGISTERED HEALTH NURSE) Smoking Status: Never smoker second hand exposure: Yes alcohol intake: never substance use type: denies use current occupational status: unemployed Travel in the last 8 weeks: None housing: house Have you lived/traveled outside [place] in past 30 days?: No Contact w/someone who lives/traveled outside [place] past 30 days?: No Exposure to someone with infectious disease in past 14 days?: No Do you have a fever (greater than 100.4 F or 38 C)?: No Have you tested positive for COVID-19: No Exposed to someone with COVID-19 in past 14 days?: No Do you have a sore throat?: No Do you have a cough?: No Do you have any weakness?: No Do you have any diarrhea?: No Are you experiencing any unusual bleeding?: No Do you have any muscle aches/pain?: No Do you have any abdominal pain?: No Are you experiencing loss of taste or smell?: No Other Medical History Have you received the Flu Vaccine for this season: No Have you received the Pneumonia Vaccine: No <Betty Mcdowell ([facility]), REGISTERED HEALTH NURSE - Last Filed: 01/16/25 14:35> ROS Obtained: Yes Systems reviewed as appropriate & no additional complaints except as documented Musculoskeletal Musculoskeletal: Reports system reviewed and no additional complaints, except as documented, Reports as per HPI, Reports joint swelling, Reports numbness and Reports tingling Neurologic Neurologic: Reports system reviewed and no additional complaints, except as documented, Reports numbness and Reports tingling Physical Exam <Betty Mcdowell ([facility]), REGISTERED HEALTH NURSE - Last Filed: 01/16/25 14:35> General General appearance: alert and in no apparent distress Eye Eye exam: Present normal appearance and PERRL ENT ENT exam: Present normal exam Respiratory Respiratory exam: Present normal lung sounds bilaterally Cardiovascular Cardiovascular exam: Present regular rate and normal rhythm Extremities Exam Extremities exam: Present tenderness, normal capillary refill and joint swelling Expanded Lower Extremity Exam Right: Ankle image: 2 1. Bruising, swelling, tender Neurological Exam Neurological exam: Present alert and oriented X3 Skin Skin exam: Present warm and intact Medical Decision Making <Betty Mcdowell ([facility]), REGISTERED HEALTH NURSE - Last Filed: 01/16/25 14:35> Medical Records Medical records reviewed: Yes I reviewed the patient's medical records. Screening: Per USPSTF and CDC recommendations, given the prevalence of disease in our region, it is our hospital?s policy to screen for HIV and viral Hepatitis for all patients aged 18 and over and those with ongoing risk factors. Anand Inquiry Pt receiving controlled substance: No Anand was queried for this patient: No Vital Signs: 01/16/25 12:49 01/16/25 13:01 01/16/25 13:30 Temperature 98.3 F Temperature Source Oral Pulse Rate 74 70 Pulse Rate [Left Radial] 73 Respiratory Rate 20 18 Blood Pressure 136/82 117/69 Blood Pressure [Right Arm] 137/97 H Blood Pressure Mean 94 Blood Pressure Mean [Right Arm] 110 02 Sat by Pulse Oximetry 99 100 95 Oxygen Delivery Method Room Air Room Air 01/16/25 14:00 01/16/25 14:47 Temperature 98.2 F Temperature Source Pulse Rate 68 62 Pulse Rate [Left Radial] Respiratory Rate 20 Blood Pressure 124/77 125/83 Blood Pressure [Right Arm] Blood Pressure Mean Blood Pressure Mean [Right Arm] 02 Sat by Pulse Oximetry 100 Oxygen Delivery Method Room Air Room Air Orders (Tests/Meds): ED MEDICATIONS Discontinued Medications Generic Name Dose Route Start Last Admin Trade Name Freq PRN Reason Stop Dose Admin Acetaminophen 500 mg 01/16/25 13:24 01/16/25 13:27 Acetaminophen 500mg Tab PO 01/16/25 13:25 500 mg ONCE ONE Administration Ibuprofen 400 mg 01/16/25 13:24 01/16/25 13:27 Ibuprofen 400 Mg Tablet PO 01/16/25 13:25 400 mg ONCE ONE Administration ORDERS Category Date Time Status Ankle XR -Right minimum 3 Views [XR ankle RT min 3V] Exams 01/16/25 12:48 Completed Stat Foot XR right minimum 3 views [XR foot RT min 3V] Stat Exams 01/16/25 12:48 Completed Tibia/fibula XR right 2 views [XR tibia fibula RT 2V] Exams 01/16/25 12:50 Completed Stat Radiology Data #1: Image(s): Tib/Fib Image Reviewed: Yes I have reviewed radiologist's interpretation Preliminary Findings: Abnormal #2: Image(s): Ankle Image Reviewed: Yes I have reviewed radiologist's interpretation Preliminary Findings: Abnormal #3: Image(s): Foot/Toes Image Reviewed: Yes I have reviewed radiologist's interpretation Preliminary Findings: Abnormal Medical Decision Narrative: In summary patient is a 29-year-old female who presents to the emergency department for evaluation of foot pain. Patient is hemodynamically stable upon arrival, afebrile. Right foot bruising and swelling noted. Differential diagnosis includes fracture. Initial workup will be conducted with x-ray foot, ankle, tib-fib. Initial inventions include x-rays. Initial workup reviewed by me [id number] avulsion fracture through the dorsum of the distal talus and small avulsion from the dorsal and proximal navicular bone. No other fractures identified. The metatarsals and calcaneus are intact. Spoke with Dr. Shen recommends walking boot, crutches, no weightbearing, and for patient to call the office first thing Saturday morning for an appointment. Upon repeat evaluation p atient resting comfortably in bed ice pack in place. Given this patient is appropriate for discharge <Naomi Flores DO - Last Filed: 01/16/25 16:16> Anand Inquiry Pt receiving controlled substance: Yes Anand was queried for this patient: Yes Risks and benefits of using a controlled substance: were discussed with pt by me Vital Signs: 01/16/25 12:49 01/16/25 13:01 01/16/25 13:30 Temperature 98.3 F Temperature Source Oral Pulse Rate 74 70 Pulse Rate [Left Radial] 73 Respiratory Rate 20 18 Blood Pressure 136/82 117/69 Blood Pressure [Right Arm] 137/97 H Blood Pressure Mean 94 Blood Pressure Mean [Right Arm] 110 02 Sat by Pulse Oximetry 99 100 95 Oxygen Delivery Method Room Air Room Air 01/16/25 14:00 01/16/25 14:47 Temperature 98.2 F Temperature Source Pulse Rate 68 62 Pulse Rate [Left Radial] Respiratory Rate 20 Blood Pressure 124/77 125/83 Blood Pressure [Right Arm] Blood Pressure Mean Blood Pressure Mean [Right Arm] 02 Sat by Pulse Oximetry 100 Oxygen Delivery Method Room Air Room Air Orders (Tests/Meds): ED MEDICATIONS Discontinued Medications Generic Name Dose Route Start Last Admin Trade Name Freq PRN Reason Stop Dose Admin Acetaminophen 500 mg 01/16/25 13:24 01/16/25 13:27 Acetaminophen 500mg Tab PO 01/16/25 13:25 500 mg ONCE ONE Administration Ibuprofen 400 mg 01/16/25 13:24 01/16/25 13:27 Ibuprofen 400 Mg Tablet PO 01/16/25 13:25 400 mg ONCE ONE Administration ORDERS Category Date Time Status Ankle XR -Right minimum 3 Views [XR ankle RT min 3V] Exams 01/16/25 12:48 Completed Stat Foot XR right minimum 3 views [XR foot RT min 3V] Stat Exams 01/16/25 12:48 Completed Tibia/fibula XR right 2 views [XR tibia fibula RT 2V] Exams 01/16/25 12:50 Completed Stat Critical Care <Betty Mcdowell ([facility]), REGISTERED HEALTH NURSE - Last Filed: 01/16/25 14:35> Critical Care Time Critical Care Time: No
[2025-01-16 13:01] VITALS: BP 136/82; PULSE 74; RESP 18; O2SAT 100
[2025-01-16] MEDS: ACETAMINOPHEN 500MG TAB 500 MG PO (13:27)
[2025-01-16] MEDS: IBUPROFEN 400 MG TABLET PO (13:27)
[2025-01-16 13:30] VITALS: BP 117/69; PULSE 70; O2SAT 95
[2025-01-16 14:00] VITALS: BP 124/77; PULSE 68; O2SAT 100
[2025-01-16 14:47] VITALS: BP 125/83; PULSE 62; RESP 20; TEMP 36.8; O2SAT 98
== END 2025-01-16 14:48 | disposition home or self-care (01) ==
PROVIDERS: Emergency Provider Emergency Medicine; PCP Internal Medicine
DX: S82.891A Other fracture of right lower leg, initial encounter for closed fracture (principal); M79.671 Pain in right foot; W18.49XA Other slipping, tripping and stumbling without falling, initial encounter
CPT/HCPCS: 73590; 73610; 73630; 99283

== ENCOUNTER 2025-02-08 09:19 | Outpatient (CLI) | payer OTHER, SELFPAY ==
--- NOTE | 2025-02-08 09:22 | XR_ITS ---
FINAL REPORT CLINICAL HISTORY: Right foot fracture COMPARISON: 01/16/2025 FINDINGS: RIGHT FOOT 3 views of the right foot were obtained. Previously noted small avulsions along the dorsal aspect of the distal talus and the tarsal navicular are not well-seen on today's exam. There is mild irregularity, but the avulsions appear to be healed. IMPRESSION: Interval healing of small avulsions along the dorsal aspect of the distal talus and the tarsal navicular. Reviewed, Interpreted and Dictated by Pratik Tyler MD Transcribed by Shameka Abrams Authenticated and [facility]
== END 2025-02-08 23:59 | disposition home or self-care (01) ==
LOC: RAD 09:20
PROVIDERS: PCP Internal Medicine; Visit Provider Podiatrist
DX: M79.671 Pain in right foot (principal); S82.891A Other fracture of right lower leg, initial encounter for closed fracture
CPT/HCPCS: 73630

== ENCOUNTER 2025-03-02 12:19 | Outpatient (CLI) | payer OTHER, SELFPAY ==
--- NOTE | 2025-03-02 12:27 | XR_ITS ---
FINAL REPORT TECHNIQUE: Right foot 3 views CLINICAL HISTORY: Right Thallus [employer] COMPARISON: 02/08/2025 FINDINGS: RIGHT FOOT Three views of the right foot show no evidence of acute displaced fracture or dislocation of the visualized bony architecture. The joint spaces appear normal. IMPRESSION: Unremarkable exam. Reviewed, Interpreted and Dictated by Shruthi Lim MD Transcribed by Laura Doss Authenticated and [facility]
== END 2025-03-02 23:59 | disposition home or self-care (01) ==
PROVIDERS: PCP Internal Medicine; Visit Provider Podiatrist
DX: S92.251A Displaced fracture of navicular [scaphoid] of right foot, initial encounter for closed fracture (principal); S92.151A Displaced avulsion fracture (chip fracture) of right talus, initial encounter for closed fracture
CPT/HCPCS: 73630